=== PATIENT | female | born 1995 | race Caucasian/White ===

== ENCOUNTER → 2020-02-05 11:35 | Outpatient (CLI) | payer SELFPAY ==
[2020-02-06 07:35] LABS: SARS-COV-2 TOTAL ABS Nonreactive (Nonreactive)
== END ==
PROVIDERS: PCP Family Medicine; Referring Provider Family Medicine; Visit Provider Family Medicine
DX: Z11.59 Encounter for screening for other viral diseases (principal)
CPT/HCPCS: 36415; 86769; G2023

== ENCOUNTER 2020-02-06 21:13 | Emergency (ER) | payer SELFPAY ==
[2020-02-06 21:15] VITALS: BP 112/79; PULSE 100; RESP 15; TEMP 37.2; O2SAT 99; BMI 21.9
[2020-02-06] MEDS: HYDROcodone Bitartrate/Apap 5/325 Tablet PO (21:39)
--- NOTE | 2020-02-06 21:44 | RAD_ITS ---
STUDY: X-RAY - RIGHT FOOT CLINICAL: Female, 24 years old. Pain on plantar surface TECHNIQUE: 3 view(s) of the foot. COMPARISON: None. FINDINGS: There is no evidence of fracture or dislocation. There are no significant degenerative changes. There are no radiodense foreign bodies. RAD/Foot min 3 Views IMPRESSION: Negative radiographs of the right foot. Electronically Signed: Santosh Pizarro, at 21:56 EDT Tel , Service support ,
--- NOTE | 2020-02-06 22:13 | ED.VIS.GEN ---
History of Present Illness Chief Complaint: Lower Extremity Injury Informant: Patient Onset: Yesterday Context: Gradual Onset Timing: Intermittent Current Severity: Moderate Maximum Severity: Moderate Narrative: The patient is a 24-year-old female who is approximately 5 months gestation that presents to the emergency department with right foot pain. The patient states that today, she had tightness on the plantar aspect of her foot. She states throughout the day, got worse and felt like she was having cramping in her toes. She denies any swelling of her feet. She denies any shortness of breath. She has no history of pulmonary embolus. She did have a splinter in the foot yesterday, but it was superficial and able to be removed. Prior similar symptoms: No Recent Illness/Hospitalization: No Past Medical History - Allergies and Home Meds Allergies/Adverse Reactions: Allergies No Known Allergies Allergy (Verified 02/06/20 21:14) Primary Care Physician: Daniel Ordonez DO [Primary Care Provider] - Prior records reviewed: Yes Past Medical History: None Surgical History: no surgical history Smoking Status: Never smoker Review of Systems General: Denies: Chills, Fever, Sweats Eyes: Denies: Visual changes - bilaterally, Diplopia ENT: Denies: Rhinorrhea, Sore throat Cardiovascular: Denies: Chest pain, Palpitations Respiratory: Denies: Dyspnea, Cough, Dyspnea on exertion Gastrointestinal: Denies: Abdominal pain, Nausea, Vomiting, Diarrhea, Melena, Hematochezia Genitourinary: Denies: Dysuria, Hematuria, Frequency Musculoskeletal: Denies: Back pain, Extremity Pain Skin: Denies: Rash, Wounds Neurological: Denies: Headache, Weakness, Numbness Physical Exam Vital Signs/Narrative: Vital Signs Temp Pulse Resp BP Pulse Ox 02/06/20 21:15 99.0 F 100 15 112/79 99 General: Well nourished, Well developed, No Acute Distress Head: Normocephalic, Atraumatic Eyes: Perrl, EOMI ENT: Moist mucous membranes, No rhinorrhea Neck: Supple, Nontender Cardiovascular: Regular rate, Regular rhythm, No murmurs Respiratory: No distress, CTA bilaterally, Chest nontender Abdomen: Soft, Nontender, Nondistended, Normal bowel sounds Back: Nontender, Normal Inspection Extremities: No edema, Tenderness - Patient is tender over the plantar fascia of the right foot. She has normal pulses. There is no palpable cords. She has no calf tenderness. With palpation of the fascia, she does get pain into the toes. Skin: Normal color, No rash Neurological: Alert, Oriented x3, Cranial nerves II-XII grossly intact, Normal Strength, Normal Sensation Psychological: Normal affect, Normal Mood Diagnostic/Tx/Re-eval Clinical Impression(s) from Imaging Studies Foot X-Ray 02/06/20 21:44 IMPRESSION: Negative radiographs of the right foot. Electronically Signed: Santosh Pizarro, at 21:56 EDT Tel , Service support , - Medical Decision Making The patient symptoms do seem most consistent with plantar fasciitis. She has no palpable cords, pain along the venous return system, or edema. The pain is all in the sole of the foot. I did obtain plain films which are unremarkable. The patient was given 1 [place] and had market improvement of her pain. She is able to stretch the foot without pain. At this point, I do feel that she is safe for outpatient follow-up. She is comfortable with this plan of care and will be discharged home. Impression 1. Plantar fasciitis right foot ED Disposition - Plan for ED Patient: Instructions: ED Plantar Fasciitis Referrals: Daniel Ordonez DO [Primary Care Provider] -
== END 2020-02-06 22:29 | disposition home or self-care (01) ==
LOC: ED 21:55
PROVIDERS: Emergency Provider Emergency Medicine; PCP Family Medicine
DX: M72.2 Plantar fascial fibromatosis (principal); O26.90 Pregnancy related conditions, unspecified, unspecified trimester; Z3A.00 Weeks of gestation of pregnancy not specified
CPT/HCPCS: 73630; 99283

== ENCOUNTER → 2020-06-07 16:30 | Outpatient (CLI) | payer SELFPAY | PROVIDERS: PCP Family Medicine; Referring Provider Obstetrics & Gynecology; Visit Provider Obstetrics & Gynecology | DX: Z11.59 Encounter for screening for other viral diseases (principal) | CPT/HCPCS: 87635; C9803; U0003 ==

== ENCOUNTER 2020-06-11 09:40 | Inpatient (IN) | payer SELFPAY ==
[2020-06-11] VITALS (16 sets, daily range): BP systolic 92–121; BP diastolic 51–72; PULSE 72–114; RESP 14–18; TEMP 36.4–37.4; O2SAT 96–100; BMI 25.0
[2020-06-11] MEDS: Lactated Ringers 1,000 ML 999 ML IV (10:15)
[2020-06-11 10:41] LABS: Absolute Lymphocyte Count 1.75 X10^3/uL (0.83-4.51); Absolute Neutrophil Count 4.4 X10^3/uL (2.0-7.7); Basophil# 0.03 X10^3/uL; Basophil% 0.4 % (0-1); Eosinophil# 0.03 X10^3/uL; Eosinophils% 0.4 % (0-5); Hematocrit 36.5 % (37-47); Hemoglobin 12.8 g/dL (12.0-15.0); Lymphocyte # 1.75 X10^3/ul (4.0); Lymphocyte % 26.1 % (19-41); Mean Corp Hgb Conc 35.1 g/dL (32-36); Mean Corpuscular Hgb 32.7 pg (27.0-32.0); Mean Corpuscular Volume 93.4 fL (81-99); Mean Platelet Vol. 9.2 fl (6.2-12.0); Monocyte# 0.47 X10^3/uL; NRBC Flagged by Analyzer 0 % (0-5); Neutrophil # 4.38 X10^3/uL (2.7-7.7); Neutrophil % 65.5 % (47-70); Platelet Count 224 K/mm3 (150-450); Red Blood Count 3.91 M/mm3 (4.2-5.4); White Blood Count 6.7 K/mm3 (4.4-11.0)
[2020-06-11] MEDS: Acetaminophen 500 MG Tablet 1000 MG PO ×2 (11:14→17:47)
[2020-06-11] MEDS: Lactated Ringers 1,000 ML 150 ML IV (11:14)
[2020-06-11] MEDS: Sodium Citrate/Citric Acid 30 ML UDC PO (11:50)
--- NOTE | 2020-06-11 11:52 | PCM.HP.OB ---
History Date of Admission: 06/15/20 History of this : This is a 24 year-old, G [], P [], at 39 weeks gestational age. Medical History: Medical History (Last Updated 06/11/20 @ 11:[address] 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 Jennifer Mi MD) Previous section Z98.891 Allergies No Known Allergies Allergy (Verified 06/11/20 10:08) Home Medications: Home Medications Pnv No.95/Ferrous Fum/Folic AC [ Formula] 1 ea PO DAILY 02/06/20 Smoking Status: Never smoker Alcohol: None Number of Fetus(es): 1 History Past Pregnancies: Past Pregnancies Delivery Date Name GA/ Weeks Outcome Route Wt Sex Labor Length Anesthesia Delivery Location Provider FOB Labs: See [facility] prenatals Physical Exam Vitals: Vital Signs Temp Pulse Resp BP Pulse Ox 98.1 F 102 H 15 119/72 96 06/11/20 10:43 06/11/20 10:43 06/11/20 10:43 06/11/20 10:43 06/11/20 10:43 General: Alert, Oriented x3 Cardiovascular: Regular rate, Regular Rhythm Lungs: Clear to auscultation, Normal air movement Abdomen: Soft, Non Tender, Non-Distended, Gravid Neurological: Cranial nerves II-XII grossly intact [employer] CHIEF: Normal external genitalia Estimated gestational size: Appropriate for gestational size Presentation: Breech Assessment/Plan This is a 24 year-old, G3, P1011, at 39&3 weeks gestational age. Admit to L&D MOD - repeat for breech Informed consent signed after discussing R/B/A
[2020-06-11] MEDS: Cefazolin 2 GM in 0.9% Normal Saline 100 ML IV (12:06)
--- NOTE | 2020-06-11 13:06 | PCM.OPRPT ---
Report of Operation Surgery/Procedure Performed:: Repeat low transverse section Description of Surgical Findings:: Septate uterus normal adnexa Delivery Classification: Scheduled Final CAROLANN: 06/15/20 Gestational age: 39 Weeks and 3 Days wardsperson: Laura Christopher Type of Anesthesia:: Spinal Date of Procedure: 06/11/20 Pre-Operative Diagnosis: (1) Breech presentation (2) Septate uterus (3) Prior section Post-Operative Diagnosis: Same Indications: Start time - 12:15 Stop time - 13:13 Indications for : Repeat Elective , Breech Description of Procedure: Patient taken to OR where spinal anesthesia was placed. She was prepped and draped in the normal sterile fashion in a dorsal supine position with a leftward tilt. After ensuring adequacy of anesthesia the Pfannensteil skin incision was made and carried through to the underlying fascia with a scalpel. The fascia was incised in the midline and carried laterally with the Alex scissors. The rectus muscles were in the midline. The peritoneum was entered bluntly. The uterus was incised in a transverse fashion and then incision extended with cephalocaudad traction. The fetus was breech and buttocks grasped. was delivered gently via typical breech maneuvers. 3VC clamped & cut in slightly delayed fashion. Then the infant was handed off to the waiting RN. The placenta was delivered with gentle traction and fundal massage and the uterus was exteriorized and cleared of all clots and debris. The uterine incision was closed with 1 vicryl suture in a running locked fashion. The bovie was used to further obtain further hemostasis of the uterine incision. A second imbricating layer of monocryl was placed over the uterine incision. The pelvis was irrigated & then cleared of all clots and debris. The uterine incision was reexamined and found to be hemostatic. Some kayla was placed over the uterine incision due to the denuded areas. The fascia was closed with looped PDS suture in a running standard fashion. Kayla was also placed on the rectus muscle. The subcutaneous tissue was examined & any bleeding bovie cauterized. The subcutaneous tissue was reapproximated with plain gut suture. The skin was closed in a subcuticular fashion by the C[employer] REGISTER MECHANIC with me present in the labor and delivery suite. I performed the remainder of the procedure w/ assistance. Amniotic Membrane Rupture Type: Artificial Amniotic Fluid Description: Clear Placenta Disposition: [facility] Drain: Jaime to straight drain Fluids Replaced: 1,000ml Cord Entanglement: None Cord Vessel Description: 3 Vessels Esitmated Blood Loss (ml): 700ml Infant Gender: Female (1 minute): 8 (5 minute): 9 Antibiotic Given: Ancef 2 grams IV x1 Complications: None - Admit VTE Documentation VTE Present on Admission: No
[2020-06-11] MEDS: Oxytocin 30 units/NS 500 ml 30 UNITS/500 ML IV.SOLN 167 UNITS IV (13:27)
[2020-06-11] MEDS: Lactated Ringers 1,000 ML 100 ML IV (16:47)
[2020-06-11] MEDS: Ketorolac 30 MG/ML Syringe IV (17:46)
[2020-06-12] VITALS (12 sets, daily range): BP systolic 91–106; BP diastolic 54–62; PULSE 72–86; RESP 16–18; TEMP 36.4–36.9; O2SAT 97–99
[2020-06-12] MEDS: Ketorolac 30 MG/ML Syringe IV ×3 (00:22→12:56)
[2020-06-12] MEDS: Acetaminophen 500 MG Tablet 1000 MG PO ×3 (00:22→12:56)
[2020-06-12 05:57] LABS: Hematocrit 30.9 % (37-47); Hemoglobin 10.7 g/dL (12.0-15.0); Mean Corp Hgb Conc 34.6 g/dL (32-36); Mean Corpuscular Hgb 33.3 pg (27.0-32.0); Mean Corpuscular Volume 96.3 fL (81-99); Mean Platelet Vol. 9.4 fl (6.2-12.0); Platelet Count 162 K/mm3 (150-450); RBC Distribution Width CV 12.9 % (11.6-14.6); RBC Distribution Width SD 45.1 fl (35.1-43.9); Red Blood Count 3.21 M/mm3 (4.2-5.4); White Blood Count 8.7 K/mm3 (4.4-11.0)
--- NOTE | 2020-06-12 08:21 | PCM.PN.OB ---
Subjective: Patient is doing well. She is ambulating and voiding without difficulty. Tolerating regular diet without nausea or vomiting. Lochia normal. She denies lightheadedness, dizziness, chest pain, shortness of breath, leg pain. She has no complaints this morning would like to go home today. - Physical Exam Vitals/I&O's: Vital Signs Temp Pulse Resp BP Pulse Ox 98.4 F 79 18 100/61 98 06/12/20 03:19 06/12/20 06:19 06/12/20 06:19 06/12/20 03:19 06/12/20 06:19 Oxygen Delivery Method Room Air Weight: 160 lb Body Mass Index (BMI) 25.0 Intake and Output for Last 24 Hours 06/10/20 06/11/20 06/12/20 23:59 23:59 23:59 Intake Total 4079.17 / 4079.17 Output Total 2100 / 2099 1700 / 1700 Balance 1979.17 / 1978.17 -1700 / -1700 General: Alert, No apparent distress HEENT: Atraumatic Abdomen: Soft, Non Tender, Non-Distended, - - Dressing c/d/i Extremities: No edema, No Calf Tenderness Skin: No rashes Neurological: Neuro grossly intact Psych/Mental Status: Normal Affect, Appropriate Laboratory Results 06/11/20 10:15: WBC 6.7, RBC 3.91 L, Hgb 12.8, Hct 36.5 L, MCV 93.4, MCH 32.7 H, MCHC 35.1, RDW Std Deviation 44.0 H, RDW Coeff of Olga 13.0, Plt Count 224, MPV 9.2, Immature Gran % (Auto) 0.600, Neut % (Auto) 65.5, Lymph % (Auto) 26.1, [place] % (Auto) 7.0, Eos % (Auto) 0.4, Baso % (Auto) 0.4, Absolute Neuts (auto) 4.4, Absolute Lymphs (auto) 1.75, Nucleated RBC % 0 06/11/20 10:15: Blood Type A NEGATIVE, Antibody Screen NEGATIVE 06/11/20 15:25: Screen NEGATIVE, Baby's Blood Type O POSITIVE, Baby's MEL NEGATIVE 06/12/20 05:35: WBC 8.7, RBC 3.21 L, Hgb 10.7 L, Hct 30.9 L, MCV 96.3, MCH 33.3 H, MCHC 34.6, RDW Std Deviation 45.1 H, RDW Coeff of Olga 12.9, Plt Count 162, MPV 9.4 Current Medications Acetaminophen (Acetaminophen 500 Mg Tablet) 1,000 mg PO Q6 [facility] Last Admin: 06/12/20 06:36 Dose: 1,000 mg Documented by: Bisacodyl (Bisacodyl 10 Mg Suppository) 10 mg RECTAL UD PRN PRN Reason: If no BM Diphenhydramine HCl (Diphenhydramine 25 Mg Capsule) 25 mg PO Q6H PRN PRN PRN Reason: ITCHING Stop: 06/12/20 12:43 Hydrocortisone (Hydrocortisone 2.5% Crm) 1 applic TOPICAL TID PRN PRN; Protocol PRN Reason: Discomfort Ibuprofen (Ibuprofen 600 Mg Tablet) 600 mg PO Q6H [facility] Ketorolac Tromethamine (Ketorolac 30 Mg/Ml Syringe) 30 mg IV Q6H [facility] Stop: 06/12/20 12:31 Last Admin: 06/12/20 06:37 Dose: 30 mg Documented by: Methylergonovine Maleate (Methylergonovine 0.2 Mg/Ml Ampul) 0.2 mg IM X1 PRN PRN Reason: Uterine Atony Nalbuphine HCl (Nalbuphine 10 Mg/Ml Ampul) 5 mg IV Q3H PRN PRN PRN Reason: ITCHING Stop: 06/12/20 12:43 Naloxone HCl (Naloxone 0.4 Mg/Ml Syringe) 0.02 mg IV Q1M PRN PRN Reason: RR <10 and pt unresponsive Ondansetron HCl (Ondansetron 4 Mg/2 Ml Vial) 4 mg IV Q4H PRN PRN PRN Reason: Nausea Oxycodone HCl (Oxycodone 5 Mg Tablet) 5 - 10 mg PO Q4H PRN PRN PRN Reason: Pain Score 4-10 Prochlorperazine Edisylate (Prochlorperazine 10 Mg/2 Ml Vial) 10 mg IV Q6H PRN PRN PRN Reason: NAUSEA Senna/Docusate Sodium (Senna/Docusate Sodium 1 Tablet) 0 tablet PO DAILY [facility] Simethicone (Simethicone 80 Mg Tablet) 80 mg PO PCHS PRN PRN Reason: Indigestion/stomach pain Sodium Chloride (0.9% Saline Lock 10 Ml Syringe) 5 - 15 ml IV UD PRN PRN Reason: SALINE FLUSH Medical Necessity - Tobacco Use Smoking Status: Never smoker Assessment/Plan Pt is postop day 1 from a repeat section. She is doing well. CBC reviewed. Hemodynamically stable. Her pain is well controlled without opiate pain medication. She is meeting all milestones to go home. She requests to go home today. Discharge instructions reviewed.
--- NOTE | 2020-06-12 08:24 | DCINST_ITS ---
Discharge Diet: No Restrictions Discharge Activity: May Not Drive, May Shower May resume sexual activity in: 6 weeks Ice area for (Minutes): 15 Weight Bearing Status: Weight bearing as tolerated Lifting Restrictions: Nothing heavier than baby for 4 weeks Call your doctor if your incision/area has: Sudden Increased Bleeding, Increased Pain/ Swelling, Increased Redness, Foul Smelling Discharge, Swelling at the incision site Call your doctor if you observe: Fever of 101 or Higher, Inability to urinate, Inability to have a bowel movement, Using more than one pad per hour, Shortness of breath, Dizziness, Fainting spells, Swelling in the ankles, Chest pain, Increased palpitations (irregular heartbeat), Calf discomfort, Uncontrolled pain Suture Line Care: Avoid Pulling/Pushing, Avoid Pinching/Bending Remove Dressing in (days):: 2 Cleanse incision/area with: Soap & Water Additional Instructions: If you experience any of the following, contact your healthcare provider. * Bleeding that soaks a pad every hour for 2 hours * Fever 100.4 or higher * Unrelieved incision or abdominal pain * Swelling, redness, discharge or bleeding from your incision or episiotomy site * Your incision begins to separate * Problems urinating (including inability to urinate or burning while urinating). * Visual changes * Severe headache * Flu-like symptoms * Pain or redness in one of both of your breasts * Pain, warmth, tenderness or swelling in your legs, especially the calf area * Frequent nausea and vomiting * Symptoms of depression or anxiety If you experience any of the following, call 911 or go to the nearest Emergency Room. * Chest pain * Problems breathing * Seizure activity * Partial or complete paralysis of a body part, slurred speech, weakness or drooping of the face, or a sudden inability to walk or hold your balance Allergies/Adverse Reactions: Allergies No Known Allergies Allergy (Verified 06/11/20 10:08) Medications to take at Discharge Pnv No.95/Ferrous Fum/Folic AC [ Formula] 1 ea PO DAILY 02/06/20 Docusate Sodium [Colace] 100 mg PO BID PRN PRN #30 cap 06/12/20 Ibuprofen [Motrin] 600 mg PO Q6H PRN PRN #30 tab 06/12/20 The following prescriptions were given: Docusate Sodium [Colace] 100 mg PO BID PRN PRN #30 cap PRN Reason: Constipation Transmission Status: Pending to [facility] Ibuprofen [Motrin] 600 mg PO Q6H PRN PRN #30 tab PRN Reason: Pain Score 6-10 Transmission Status: Pending to [facility] Follow-Up: Call to make an appointment with your doctor for an incision check in 1-2 weeks. You will also need a 6 week post- follow up appointment. Test results from this visit will be discussed in further detail at your follow- up appointment, if applicable. Please Follow Up With: Jennifer Mi MD When: 1-2 weeks for incision check. 6 weeks for visit Primary Care Physician: Daniel Ordonez DO [Primary Care Provider] -
[2020-06-12] MEDS: Senna/Docusate Sodium 1 Tablet PO (12:56)
[2020-06-12] MEDS: 0.9% Saline Lock 10 ML Syringe IV (12:57)
== END 2020-06-12 17:15 | disposition home or self-care (01) | DRG 788 ==
PROVIDERS: Admitting Provider Obstetrics & Gynecology; PCP Family Medicine; Visit Provider Obstetrics & Gynecology
PROC: 10D00Z1 Extraction of Products of Conception, Low, Open Approach (ICD-10-PCS; CPT 59514; principal; 2020-06-11 11:45)
DX: O34.211 Maternal care for low transverse scar from previous cesarean delivery (principal); Z37.0 Single live birth; Q51.28 Other and unspecified doubling of uterus; O32.1XX0 Maternal care for breech presentation, not applicable or unspecified; Z3A.39 39 weeks gestation of pregnancy
CPT/HCPCS: 85025; 85027; 85461; 86850; 86900; 86901; 90384; 99218; J7120; A4216; G0378; J2405; J2790

== ENCOUNTER 2021-01-08 06:15 | Emergency (ER) | payer OTHER, SELFPAY ==
[2020-06-11 10:06] VITALS: BMI 25.0
[2021-01-08 06:16] VITALS: BP 122/75; PULSE 118; RESP 16; TEMP 36.8; O2SAT 98; BMI 21.8
--- NOTE | 2021-01-08 06:29 | US_ITS ---
STUDY: FIRST TRIMESTER OBSTETRICAL ULTRASOUND REASON FOR EXAM: Female, 25 years old bleeding LMP: 10/24/2020. TECHNIQUE: Transvaginal TECHNICAL QUALITY: Adequate. PRIOR ULTRASOUND: None. FINDINGS: There is no demonstrated intrauterine gestational sac. There is no demonstrated yolk sac. The placenta is non-visualized. There is no demonstrated embryo ( pole). The estimated gestation age (EGA) by LMP is 10 weeks, 6 days. The estimated date of delivery (CAROLANN) by LMP is 07/31/2021. The uterus measures 12.9 cm x 9.1 cm x 5.2 cm. The endometrium is thickened measuring 1.9 cm. There is evidence of a uterine septum.. There is no demonstrated uterine fibroid. The cervix is closed. The right ovary measures 4.6 cm x 4 cm x 1.7 cm. There is no right ovarian cyst. There is no visualized right adnexal mass or complex lesion. The left ovary measures 4.5 cm x 4.2 cm x 1.4 cm.. There is no left ovarian cyst. There is no visualized left adnexal mass or complex lesion. There is minimal fluid in the cul de sac. US/Transvaginal w/Preg US IMPRESSION: No evidence of intrauterine gestation. Thickened endometrium. Septated uterus. Electronically Signed: Michael Rendon MD at 8:24 EDT , Service support ,
--- NOTE | 2021-01-08 06:34 | EX.ED.DYSGE1 ---
HPI History of Present Illness Chief Complaint: Vag Bld, Preg Informant: patient Narrative Narrative: 25 year old female presenting with vaginal bleeding in . Patient states she believed she was approximately 9 weeks and on Wednesday began having heavy bleeding with clots. She states before that she had been spotting for weeks. She states the bleeding slowed down over the weekend and became heavy again on Wednesday. She has mild cramping. She is [id number]. She has not had an ultrasound during this . She has lightheadedness without syncope. Prior similar symptoms: Yes Recent Illness/Hospitalization: No PFSH PFSH Medical History Septate uterus Home Medications docusate sodium 100 mg PO BID PRN PRN #30 cap 06/12/20 [Rx Last Taken Unknown] ibuprofen 600 mg PO Q6H PRN PRN #30 tab 06/12/20 [Rx Last Taken Unknown] Allergy/AdvReac Type Severity Reaction Status Date / Time No Known Allergies Allergy Verified 01/08/21 06:19 Surgical History Previous section Social History Smoking Status: Never smoker ROS ROS ED Constitutional Constitutional ED: Denies fever(s) Eyes Eyes: Denies change in vision ENT ENT ED: Denies rhinorrhea or sore throat Cardiovascular Cardiovascular: Denies chest pain or palpitations Respiratory/Chest Respiratory/Chest: Denies cough or dyspnea Gastrointestinal Gastrointestinal: Denies abdominal pain, diarrhea, nausea or vomiting Genitourinary Genitourinary ED: Denies dysuria Musculoskeletal Musculoskeletal: Denies myalgias Integumentary Denies rash Neurologic Neurologic: Denies headache(s) Psychiatric Psychiatric: Denies suicidal thoughts EXAM Physical Exam Const Vital Signs: 01/08/21 06:16 Temperature 98.2 F Temperature Source Temporal Pulse Rate 118 H Respiratory Rate 16 Blood Pressure 122/75 H Blood Pressure Mean 90 Pulse Ox 98 Oxygen Delivery Method Room Air Positive well nourished and well developed General Appearance ED: well developed HEENT Reports normocephalic and head/scalp atraumatic Eyes PERRL and EOMs intact bilaterally Neck supple General: Negative for tenderness Chest Wall inspection of chest normal Resp normal respiratory effort and clear to auscultation bilaterally Cardio regular rate and regular rhythm GI non-tender and non-distended Palpation: soft; Negative for guarding or rebound tenderness present no CVA tenderness Narrative: large clot cleared with cotton tip swab. No active bleeding once blood is cleared. Extremity normal to inspection Neuro oriented x3 Sensorium / Orientation: alert Psych mental status grossly normal MDM MDM MDM Narrative Medical decision making narrative: Ultrasound is pending and will be checked out to the oncoming physician Lab Data Attestation: I reviewed the patient's lab results. Labs: Laboratory Results - last 24 hr 01/08/21 01/08/21 06:40 06:40 Hgb 11.9 L Hct 34.0 L HCG, Quant 96656 H Discharge Plan Triage Chief Complaint: Vag Bld, Preg ED Provider: Leela Hou Dx/Rx/DC Orders Instructions: ED Possible Miscarriage ... Prescriptions: No Action docusate sodium 100 MG capsule 100 mg PO BID PRN PRN (Reason: Constipation) Qty: 30 RF: 0 ibuprofen 600 MG tablet 600 mg PO Q6H PRN PRN (Reason: Pain Score 6-10) Qty: 30 RF: 0 Primary Care Provider: Daniel Ordonez Referrals: Daniel Ordonez DO [Primary Care Provider] -
[2021-01-08 06:48] LABS: Hemoglobin 11.9 g/dL (12.0-15.0)
[2021-01-08 07:27] LABS: hCG Titer Quant., Serum 29282 mIU/mL (1-3)
[2021-01-08 09:27] VITALS: BP 99/59; PULSE 63; RESP 16; O2SAT 99
== END 2021-01-08 09:28 | disposition home or self-care (01) ==
PROVIDERS: Emergency Provider Emergency Medicine; PCP Family Medicine
DX: O20.9 Hemorrhage in early pregnancy, unspecified (principal); Z3A.09 9 weeks gestation of pregnancy
CPT/HCPCS: 76817; 84702; 85014; 85018; 86850; 86900; 86901; 90384; 96372; 99283; A4216; J2790

== ENCOUNTER 2021-06-17 18:45 | Inpatient (IN) | payer SELFPAY, OTHER ==
--- NOTE | 2021-06-17 | IMM_PTH ---
PATIENT: ROGERIO ARAMBULA LOC: WP U#:[id number] AGE/SX: 25/F ROOM: WP021 RE06/17/[address]: Екатерина Turner CNM : 1995 BED: 1 DIS: 06/18/2021 SPEC #: [id number] RECD: 06/19/21 15:07 STATUS: SAUL REQ #: [id number] [place]: 06/17/21 00:[address]: Екатерина Turner DEPT: IMMUNOHISTOCHEMISTRY RECD BY: Sussy Perez ENTERED: 06/19/21 15:07 SP TYPE: IMMUNO OTHR DR: Dr. Daniel Ordonez DO Tissues: Placenta, NOS Procedures: MPO (initial) MPO (add) PHYSICIAN & INSTITUTION [place] [id number] SPECIMEN INFORMATION: Tissue Source: Placenta Clinical Info: demise Specimen Number: [id number] #2 & 5 CPT code: 57366, 10606 METHODOLOGY: Deparaffinized sections of prefer/formalin-fixed tissue or PAP/DQ stained slides are incubated with monoclonal/polyclonal antibodies/oligonucleotide probes. Localization is made via biotin free immunoperoxidase method. Appropriate controls are performed and reacted as expected. Results on target cell population are indicated in the following table: RESULTS: ANTIBODY / CLONE RESULT Block 2 MPO (polyclonal) positive Block 5 MPO (polyclonal) positive These tests were developed and their performance characteristics determined by [facility]. They may not have been cleared or approved by the U.S. Food and Drug Administration. The FDA has determined that such clearance or approval is not necessary. The above immunohistochemical/dualISH markers are ordered and reviewed by the Pathologist. INTERPRETATION: Placenta: Umbilical cord with changes suggestive of focal acute inflammation. Decidua with focal acute inflammation. AM:mikhail 06/20/2021
--- NOTE | 2021-06-17 | PLAC_PTH ---
PATIENT: ROGERIO ARAMBULA LOC: WP U#:[id number] AGE/SX: 25/F ROOM: WP021 RE06/17/[address]: Екатерина Turner CNM : 1995 BED: 1 DIS: 06/18/2021 SPEC #: [id number] RECD: 06/18/21 07:29 STATUS: SAUL REManuela #: [id number] [place]: 06/17/21 00:[address]: Екатерина Turner DEPT: SURGICAL PATHOLOGY RECD BY: Irwin Butcher ENTERED: 06/18/21 09:42 SP TYPE: PLACENTA OTHR DR: Dr. Daniel Ordonez DO Tissues: Placenta, NOS Procedures: Surgery Specimen Level V HEADER OPERATION: Vaginal delivery PRE-OP DIAGNOSIS: demise TISSUE SUBMITTED: Placenta MICROSCOPIC DIAGNOSIS Immature placenta (84 gm): Umbilical cord ? trivascular with changes suggestive of acute funisitis. See comment. Placental membranes ? focal autolytic change. Placental disc ? immature villi consistent with gestational age. Mild acute and chronic deciduitis. AM:mikhail 06/19/2021 COMMENT Immunohistochemistry ([id number]) supports the above diagnosis. Increased intraparenchymal fibrin plaques. Case has been reviewed in consultation with Dr. Charlton who concurs with the above diagnosis. IDC:[id number] MICROSCOPIC DESCRIPTION Slides are reviewed. GROSS DESCRIPTION SPECIMEN: PLACENTA / CLINICAL INFORMATION: A. Weight: Not noted B. Gestational Age: 19 weeks C. Sex: Male PLACENTAL WEIGHT (POST FIXATION): 84 gm PLACENTAL DIMENSIONS: 8 x 6 x 2 cm PLACENTAL SHAPE: Usual ovoid PLACENTAL WEIGHT FOR GESTATIONAL AGE: Under 10th percentile MEMBRANES - Present A. Insertion: Marginal B. Site of rupture from edge: At edge of placental disc C. Color of membrane: Harley-greenish and mucoidy consistent with meconium staining D. Abnormalities: None UMBILICAL CORD - Present A. Color: Harley-farley B. Insertion: Marginal C. Length: 16 cm D. Diameter: 0.5 cm E. Number of vessels: Three F. Abnormalities: None PLACENTAL DISC ? The body of the placenta is partly disrupted. A. Color of surface: Harley-farley B. surface abnormalities: None C. Maternal cotyledons: Intact with minimal tears D. Attached retro placental clot: A few blood clots are noted at the edge of the placenta. E. Cut surface: Dark red and spongy F. Lesions: None G. Separate clot: Absent SECTIONS SUBMITTED: 1. Membrane roll 2. Cord, maternal end 3. Cord, end 4. Placental disc, and maternal surfaces 5. Placental disc, and maternal surfaces 6. Placental disc, and maternal surfaces SJ:mikhail 06/18/21 TC:3 CPT: 43870
[2021-06-17 19:18] VITALS: BMI 21.4
[2021-06-17 19:59] VITALS: BP 103/67; PULSE 86; TEMP 37.3; TEMP 38
[2021-06-17] MEDS: miSOPROStol 200 MCG Tablet 400 MCG VAGINAL (20:29)
[2021-06-17 20:49] LABS: Absolute Lymphocyte Count 2.21 X10^3/uL (0.83-4.51); Absolute Neutrophil Count 3.6 X10^3/uL (2.0-7.7); Basophil# 0.03 X10^3/uL; Basophil% 0.5 % (0-1); Eosinophil# 0.05 X10^3/uL; Eosinophils% 0.8 % (0-5); Hematocrit 40.5 % (37-47); Hemoglobin 13.8 g/dL (12.0-15.0); Lymphocyte # 2.21 X10^3/ul (0.83-4.51); Lymphocyte % 34.3 % (19-41); Mean Corp Hgb Conc 34.1 g/dL (32-36); Mean Corpuscular Hgb 30.7 pg (27.0-32.0); Mean Corpuscular Volume 90.2 fL (81-99); Mean Platelet Vol. 9.5 fl (6.2-12.0); Monocyte# 0.53 X10^3/uL; Monocyte% 8.2 % (0-10); NRBC Flagged by Analyzer 0 % (0-5); Neutrophil # 3.59 X10^3/uL (2.7-7.7); Neutrophil % 55.7 % (47-70); Platelet Count 280 K/mm3 (150-450); RBC Distribution Width CV 13.1 % (11.6-14.6); RBC Distribution Width SD 42.7 fl (35.1-43.9); Red Blood Count 4.49 M/mm3 (4.2-5.4); White Blood Count 6.4 K/mm3 (4.4-11.0)
--- NOTE | 2021-06-17 21:11 | HP.PCM.OB_ITS ---
HPI - General General Date of Admission: 06/17/21 HPI Narrative ROGERIO ARAMBULA, is a 25 F at 19.5 weeks gestation that presents for induction of labor for intrauterine demise. Patient in office today for ultrasound and no cardiac activity seen. demise confirmed. Fetus measuring 16.1 weeks gestation. complicated by late care, RH negative status, and septated uterus. Patient has 2 previous C/S and desires TOLAC today. Maternal Data Information CAROLANN Calculator Estimated Delivery Date Method Current WG Current Estimate 11/06/21 Manual 19w 5d PFSH PFS Medical History Septate uterus Home Medications multivitamin with minerals 10 ml PO DAILY 06/17/21 [History Last Taken 06/16/21] Allergy/AdvReac Type Severity Reaction Status Date / Time No Known Allergies Allergy Verified 06/17/21 20:20 Surgical History Previous section Social History Smoking Status: Never smoker History Elective abortions Hx Para 2 Spontaneous abortions Hx # Term Pregnancies Ectopic pregnancies Hx # Pregnancies Multiple births # of living children ROS Eyes Eyes: Denies blurry vision, change in vision or spots in vision ENT HEENT: Denies dizziness or headache(s) Cardiovascular Cardiovascular: Denies abdominal pain, chest pain or dyspnea Respiratory/Chest Respiratory/Chest: Denies cough, dyspnea, shortness of breath at rest or shortness of breath with exertion Gastrointestinal Gastrointestinal: Denies abdominal pain, diarrhea or vomiting Genitourinary Genitourinary: Denies change in urinary stream, difficulty urinating or dysuria Musculoskeletal Musculoskeletal: Reports none Integumentary Integumentary: Denies rash Neurologic Neurologic: Denies dizziness, headache(s), memory loss or weakness Psychiatric Psychiatric: Reports none Vital Signs Vital Signs Vital Signs: 06/17/21 19:59 Temperature 99.2 F H Temperature Source Oral Pulse Rate 86 Blood Pressure 103/67 BP Systolic 103 BP Diastolic 67 Weight Weight: 137 lb Body Mass Index (BMI) 21.4 Physical Exam Const alert, oriented x3 and no apparent distress General Appearance: cooperative Orientation / Consciousness: awake Exam Limitations: no limitations HEENT normocephalic Head and Scalp: normal to inspection Eyes General Eye: normal appearance of both eyes Neck full ROM and no lymphadenopathy Lymph Lymphatic: no lymphadenopathy noted Chest inspection of chest normal Resp normal respiratory effort, normal air movement and clear to auscultation bilaterally Effort and Inspection: able to speak in complete sentences and symmetric chest movement Cardio regular rate and regular rhythm GI normal to inspection, nondistended, normoactive bowel sounds Manual OB Exam: dilated closed, effaced thick and station -3 Amniotic Fluid: no amniotic fluid noted Back/Spine normal ROM Extremity full ROM and no calf tenderness Skin no rashes or lesions noted General Skin Exam: no breakdown Neuro oriented x3 and CN's II-XII intact bilaterally Psych mental status grossly normal and thought process normal Labs Labs Labs: Blood Type A NEGATIVE Antibody Screen NEGATIVE Hct 40.5 % (37-47) Hgb 13.8 g/dL (12.0-15.0) Obstetrics US Rhogam given: Yes Assessment & Plan (1) IUFD at less than 20 weeks of gestation: (2) Previous delivery affecting , antepartum: (3) Septate uterus: (4) Rh negative status during : QUALIFIERS: Trimester: second trimester Qualified Code(s): O26.89 2 - Other specified related conditions, second trimester; Z67.91 - Unspecified blood type, Rh negative PLAN: Admit to labor and delivery for induction of labor for IUFD Routine labs Start IV fluids and run per policy Cytotec 400 mcg PV every 4 hours Epidural for pain control Anticipate - Rhogam IM after delivery Dr. Mi collaborating physician and involved in plan of care
[2021-06-18] VITALS (18 sets, daily range): BP systolic 100–116; BP diastolic 56–71; PULSE 73–100; RESP 16; TEMP 37.1–37.4; O2SAT 98–99
[2021-06-18] MEDS: miSOPROStol 200 MCG Tablet 400 MCG VAGINAL ×2 (00:43→04:52)
[2021-06-18] MEDS: Oxytocin 30 units/NS 500 ml 30 UNITS/500 ML IV.SOLN 334 UNITS IV (06:08)
--- NOTE | 2021-06-18 06:39 | EX.PCM.OBRPT ---
Assessment & Plan (1) (spontaneous vaginal delivery): (2) Intact amniotic membranes: Maternal Data Information CAROLANN Calculator Estimated Delivery Date Method Current WG Current Estimate 11/06/21 Manual 19w 6d Vaginal Delivery Maternal Presentation Maternal Presentation: at 19.5 weeks gestation for induction of labor for intrauterine demise Type of Induction: Cytotec Medical Reason for Induction: demise Operative Information Type of Anesthesia: None Estimated Blood Loss: 50 Time of Delivery: 06:03 Findings Description of Procedure: Called to patient's room due to feeling pressure. With initial push, fetus delivered en caul. Amniotic sac intact. Placenta intact. Vaginal sweep completed by me. Pitocin IV started. Bleeding minimal. Fundus firm [address] Mi notified of delivery. Patient declines Anora testing. Placenta sent to pathology. Placenta Disposition: Sent to Pathology
--- NOTE | 2021-06-18 07:06 | NURSING ---
of demise 06/18/2021 at 0603. Fetus delivered in intact amniotic sac.
--- NOTE | 2021-06-18 07:12 | PCM.DC ---
Discharge Instructions Follow Up Care Test Results: Test results from this visit will be discussed in further detail at your follow-up appointment, if applicable. Discharge Plan Admission Admit Date/Time: 06/17/21 18:45 Primary Reason for Your Visit: Ricardoilhueyy Attending Provider: Екатерина Turner Primary Care Provider: Daniel Ordonez Instructions Additional Instructions / Restrictions: Please come to office after 6 weeks for exam Discharge Orders/Prescriptions Prescriptions: No Action multivitamin with minerals Liquid 10 ml PO DAILY RF: 0 Referrals / Follow Up: Daniel Ordonez DO [Primary Care Provider] - Disposition Disposition (needs filled in before D/C Order can be placed): Home, Self Care
[2021-06-23 11:02] LABS: Pathology Specimen OB SEE PATHOLOGY REPORT
== END 2021-06-18 10:05 | disposition home or self-care (01) | DRG 807 ==
PROVIDERS: Admitting Provider Advanced Practice Midwife; PCP Family Medicine; Visit Provider Advanced Practice Midwife
DX: O36.4XX0 Maternal care for intrauterine death, not applicable or unspecified (principal); Z37.1 Single stillbirth; Z3A.19 19 weeks gestation of pregnancy; O34.219 Maternal care for unspecified type scar from previous cesarean delivery; N85.8 Other specified noninflammatory disorders of uterus; O34.02 Maternal care for unspecified congenital malformation of uterus, second trimester; Q51.28 Other and unspecified doubling of uterus; O26.892 Other specified pregnancy related conditions, second trimester; Z67.91 Unspecified blood type, Rh negative
CPT/HCPCS: 59050; 85025; 85461; 86850; 86900; 86901; 87426; 88307; 88341; 88342; 90384; 99218; G0378; J2790

== ENCOUNTER 2022-11-03 09:25 | Inpatient (IN) | payer SELFPAY, OTHER ==
[2022-11-03] VITALS (19 sets, daily range): BP systolic 99–129; BP diastolic 44–75; PULSE 76–113; RESP 16; TEMP 36.5–37.1; O2SAT 96–100; BMI 27.6
[2022-11-03 10:13] LABS: Absolute Lymphocyte Count 1.46 X10^3/uL (0.83-4.51); Absolute Neutrophil Count 4.3 X10^3/uL (2.0-7.7); Basophil# 0.03 X10^3/uL; Basophil% 0.5 % (0-1); Eosinophil# 0.05 X10^3/uL; Eosinophils% 0.8 % (0-5); Hematocrit 35.3 % (37-47); Hemoglobin 12.5 g/dL (12.0-15.0); Lymphocyte # 1.46 X10^3/ul (0.83-4.51); Lymphocyte % 23.2 % (19-41); Mean Corp Hgb Conc 35.4 g/dL (32-36); Mean Corpuscular Hgb 33.1 pg (27.0-32.0); Mean Corpuscular Volume 93.4 fL (81-99); Mean Platelet Vol. 9.4 fl (6.2-12.0); Monocyte% 6.4 % (0-10); NRBC Flagged by Analyzer 0 % (0-5); Neutrophil # 4.32 X10^3/uL (2.7-7.7); Neutrophil % 68.6 % (47-70); Platelet Count 225 K/mm3 (150-450); RBC Distribution Width CV 13.1 % (11.6-14.6); RBC Distribution Width SD 44.7 fl (35.1-43.9); Red Blood Count 3.78 M/mm3 (4.2-5.4); White Blood Count 6.3 K/mm3 (4.4-11.0)
[2022-11-03] MEDS: Acetaminophen 500 MG Tablet 1000 MG PO ×3 (10:34→22:36)
[2022-11-03] MEDS: Lactated Ringers 1,000 ML 999 ML IV (10:35)
[2022-11-03] MEDS: Lactated Ringers 1,000 ML 150 ML IV (10:51)
[2022-11-03 11:02] LABS: Syphilis Antibodies Non-reactive
[2022-11-03] MEDS: Cefazolin 2 GM in 0.9% Normal Saline 100 ML IV (11:45)
--- NOTE | 2022-11-03 11:53 | PCM.HP.OB ---
HPI - General General Date of Admission: 11/03/22 Date of Service: 11/03/22 HPI Narrative ROGERIO ARAMBULA, is a 27 F who presents for . Maternal Data Information CAROLANN Calculator Estimated Delivery Date Method Current WG Current Estimate 11/06/21 Manual 91w 5d Final CAROLANN: 11/10/22 Gestational age: 39 weeks PFSH PFSH Medical History Intact amniotic membranes IUFD at less than 20 weeks of gestation Septate uterus (spontaneous vaginal delivery) Uterine anomaly Home Medications multivitamin with minerals 10 ml PO DAILY 06/17/21 [History Last Taken 06/16/21] Allergy/AdvReac Type Severity Reaction Status Date / Time No Known Allergies Allergy Verified 11/03/22 09:44 Surgical History Previous delivery affecting , antepartum Previous section Social History Smoking Status: Never smoker History Elective abortions Hx Para 2 Spontaneous abortions Hx # Term Pregnancies Ectopic pregnancies Hx # Pregnancies Multiple births # of living children Vital Signs Vital Signs Vital Signs: 11/03/22 10:25 Temperature 98.4 F Temperature Source Temporal Pulse Rate 113 H Respiratory Rate 16 Blood Pressure 129/74 H Blood Pressure Mean 92 Blood Pressure Source Monitor Blood Pressure Position Semi-Fowlers Blood Pressure Location Left Arm Pulse Ox 96 Oxygen Delivery Method Room Air Weight Weight: 176 lb 5.917 oz Body Mass Index (BMI) 27.6 Physical Exam Const alert and oriented x3 Chest inspection of chest normal GI soft to palpation, non-tender and non-distended Inspection: gravid external exam normal Extremity normal to inspection Neuro moves all extremities Labs Labs Labs: Blood Type A NEGATIVE Antibody Screen NEGATIVE Hct 35.3 % (37-47) L Hgb 12.5 g/dL (12.0-15.0) Obstetrics US Syphilis Total Ab Non-reactive Rhogam given: Yes Assessment & Plan (1) Breech presentation: COMMENT: @ 39 weeks (2) Previous delivery affecting : PLAN: Plan Admit to L&D Repeat c-cection - informed consent signed after discussing R/B/A RH negative Routine PP care
--- NOTE | 2022-11-03 12:51 | EX.PCM.OBRPT ---
Maternal Data Information CAROLANN Calculator Estimated Delivery Date Method Current WG Current Estimate 11/06/21 Manual 91w 5d Final CAROLANN: 11/10/22 Gestational age: 39 weeks Details Operative Information Date of Procedure: 11/03/22 Pre-Operative Diagnosis: (1) Prior section (2) Breech presentation Post-Operative Diagnosis: Same Indications for : Repeat Elective and Breech Indications Narrative: The patient was taken to the operating room where spinal anesthesia was placed & found to be adequate. She was prepped and draped in the dorsal supine position with a leftward tilt. A Pfannenstiel skin incision was made approximately 2 cm above the symphysis pubis. Patient reported pain so procedure paused while IV pain medication given. Incision was then carried through to the underlying fascia with the scalpel. The fascia was incised incised in the midline and extended laterally with the Alex scissors. The rectus muscles were in the midline and the peritoneum was entered carefully and bluntly. The peritoneal incision was stretched and the bladder blade was inserted. Vesicouterine peritoneum was tented up, incised & then bladder flap created gently. The uterine incision was made in a low transverse fashion with the scalpel and extended superiorly and inferiorly with blunt dissection. The 's buttocks were grasped and infant delivered via typical breech maneuvers. The 3VC cord was clamped and cut. The infant was handed off to the waiting part time receptionist. The placenta was delivered with fundal massage and gentle traction in the standard fashion. The uterus was exteriorized and cleared of clots and debris. The uterine incision was closed with #1 Vicryl suture in a running locked fashion. Monocryl suture was used in an imbricating fashion. The incision was examined and was found to be hemostatic. The uterus was returned to the abdominal cavity. After irrigating Satya was placed over the uterine incision as some areas were denuded (but hemostatic). The peritoneum was closed with vicryl suture in running fashion The rectus muscle was examined and any bleeding was Bovie cauterized. The fascia was closed with PDS suture in a running standard fashion. The subcutaneous tissue was examining and any bleeding was Bovie cauterized. The subcutaneous tissue was reapproximated with interrupted sutures. The skin was closed in a subcuticular fashion by the WEATHER FORECASTER while I was present in the labor & delivery unit. The remainder of the procedure was performed by me with assistance. All sponge, lap, and needle counts were correct. The patient was taken to her room for recovery in a stable condition. Classification: Scheduled Procedure Type: low transverse hvac sales engineer #1: Jing Urrutia Type of Anesthesia: Spinal Antibiotic Given: Ancef 2 grams IV x1 Drain: Jaime to straight drain Estimated Blood Loss: 800ml Fluids Replaced: 2L Procedure Start Time: 12:05 Procedure Stop Time: 13:10 Findings Description of Procedure: Normal maternal uterus and adnexa Presentation: Positive for Jagdeep Breech Amniotic Membrane Rupture Type: Artificial Amniotic Fluid Description: Clear Placental Delivery Description: Expressed Placenta Disposition: [facility] Cord Vessel Description: 3 Vessels Cord Entanglement: None Infant A Gender: Male (1 minute): 2 (5 minute): 9 (10 at 10 minutes) Delayed Cord Clamping: No Complications Complications: None
[2022-11-03] MEDS: Ketorolac 30 MG/ML Syringe IV ×2 (13:37→20:04)
[2022-11-03] MEDS: Oxytocin 15 Units/NS 250ml 15 UNITS/250 ML IV.SOLN 83 UNITS IV (13:40)
[2022-11-03] MEDS: Lactated Ringers 1,000 ML 100 ML IV (16:40)
[2022-11-04] VITALS (8 sets, daily range): BP systolic 92–112; BP diastolic 47–65; PULSE 87–98; RESP 14–16; TEMP 36.7–36.9; O2SAT 97–98
[2022-11-04] MEDS: Enoxaparin 40 MG/0.4 ML Syringe SC (00:23)
[2022-11-04] MEDS: Ketorolac 30 MG/ML Syringe IV ×2 (01:45→07:49)
[2022-11-04] MEDS: 0.9% Saline Lock 10 ML Syringe IV ×2 (01:46→07:50)
[2022-11-04] MEDS: Acetaminophen 500 MG Tablet 1000 MG PO ×2 (04:14→10:11)
[2022-11-04 04:58] LABS: Hematocrit 31.4 % (37-47); Hemoglobin 10.7 g/dL (12.0-15.0); Mean Corp Hgb Conc 34.1 g/dL (32-36); Mean Corpuscular Hgb 32.7 pg (27.0-32.0); Mean Platelet Vol. 8.7 fl (6.2-12.0); Platelet Count 184 K/mm3 (150-450); RBC Distribution Width CV 13.1 % (11.6-14.6); RBC Distribution Width SD 45.6 fl (35.1-43.9); Red Blood Count 3.27 M/mm3 (4.2-5.4); White Blood Count 10.7 K/mm3 (4.4-11.0)
--- NOTE | 2022-11-04 07:19 | PCM.DC.SUM ---
Providers Date of Admission: 11/03/22 Primary Care Physician: Dr. Daniel Ordonez DO Reason For Visit: REPEAT Diagnosis Discharge Diagnosis (1) Breech presentation: Status: Acute Code(s): O32.1XX0 - Maternal care for breech presentation, not applicable or unspecified (2) Previous delivery affecting : Status: Acute Code(s): O34.219 - Maternal care for unspecified type scar from previous delivery Medications at Discharge Home Medications multivitamin with minerals 10 ml PO DAILY 06/17/21 acetaminophen 500 mg tablet 1,000 mg PO Q6H #0 tabs 11/04/22 ibuprofen 600 mg tablet 600 mg PO Q6H #0 tabs 11/04/22 sennosides 8.6 mg-docusate sodium 50 mg tablet (Stool Softener-Stimulant Laxative) 1 - 2 tab PO DAILY #0 tabs 11/04/22 Hospital Course Operations section Summary of Care Provided Hospital Course: Patient was for a section. Hospital course was uneventful. Physical Exam Narrative Dressing is dry and intact. Patient seen at bedside. Ambulating, showering and voiding without difficulty. Passing flatus. Lochia decreasing. independently. Denies any headache, dizziness, SOB, CP. Desires discharge home today. Const alert and no apparent distress General Appearance: cooperative and comfortable Exam Limitations: no limitations HEENT normocephalic Eyes General Eye: normal appearance of both eyes Neck full ROM General: normal visual inspection Chest Chest: symmetrical chest wall rise Resp normal respiratory effort and normal air movement Effort and Inspection: symmetric chest movement Auscultation: clear to auscultation bilaterally Cardio regular rate and regular rhythm GI normal to inspection, nondistended, normoactive bowel sounds Back/Spine normal ROM Extremity full ROM and no calf tenderness General Extremity: normal exam except as noted Skin no rashes or lesions noted Neuro CN's II-XII intact bilaterally Psych mental status grossly normal Weight / BMI Weight Weight: 176 lb 5.917 oz Body Mass Index (BMI) 27.6 ABG / Lab / Microbiology Data Result Diagrams: 11/04/22 04:50 Laboratory: Laboratory Results - last 24 hr 11/03/22 09:55: WBC 6.3, RBC 3.78 L, Hgb 12.5, Hct 35.3 L, MCV 93.4, MCH 33.1 H, MCHC 35.4, RDW Std Deviation 44.7 H, RDW Coeff of Olga 13.1, Plt Count 225, MPV 9.4, Immature Gran % (Auto) 0.500, Neut % (Auto) 68.6, Lymph % (Auto) 23.2, [place] % (Auto) 6.4, Eos % (Auto) 0.8, Baso % (Auto) 0.5, Absolute Neuts (auto) 4.3, Absolute Lymphs (auto) 1.46, Nucleated RBC % 0 11/03/22 09:55: Blood Type A NEGATIVE, Antibody Screen POSITIVE, Antibody Identification ANTI-D 11/03/22 09:55: Syphilis Total Ab Non-reactive 11/04/22 04:50: WBC 10.7, RBC 3.27 L, Hgb 10.7 L, Hct 31.4 L, MCV 96.0, MCH 32.7 H, MCHC 34.1, RDW Std Deviation 45.6 H, RDW Coeff of Olga 13.1, Plt Count 184, MPV 8.7 D/C Instructions Discharge Diet: No restrictions Discharge Activity: May Shower May resume sexual activity in: 6-8 weeks Weight Bearing Status: Weight bearing as tolerated Call your doctor if your incision/area has: Continuous Slow Oozing, Sudden Increased Bleeding, Increased Pain/ Swelling, Increased Redness, Foul Smelling Discharge and Swelling at the incision site Call your doctor if you observe: Fever of 101 or Higher, Numbness or Tingling, Inability to urinate, Using more than 1 pad per hour, Shortness of breath, Dizziness, Chest pain, Calf discomfort and Uncontrolled pain Change Dressing in: leave in place till F/U Cleanse incision/area with: Soap & Water Please Follow Up With: Jennifer Mi MD When: within 10 days Meaningful Use Info Meaningful Use Diagnoses (Choose all that apply): None applicable Discharge Plan Admission Admit Date/Time: 11/03/22 09:25 Primary Reason for Your Visit: Repeat section Attending Provider: Jennifer Mi Primary Care Provider: Daniel Ordonez Discharge Orders/Prescriptions Prescriptions: New sennosides-docusate sodium [Stool Softener-Stimulant Laxat] 8.6-50 mg Tablet 1 - 2 tab PO DAILY Qty: 0 0RF acetaminophen 500 mg Tablet 1,000 mg PO Q6H Qty: 0 0RF ibuprofen 600 mg Tablet 600 mg PO Q6H Qty: 0 0RF Continued multivitamin with minerals Liquid 10 ml PO DAILY Referrals / Follow Up: Daniel Ordonez DO [Primary Care Provider] - Disposition Disposition (needs filled in before D/C Order can be placed): Home, Self Care
[2022-11-04] MEDS: Senna/Docusate Sodium 1 Tablet PO (10:10)
[2022-11-04] MEDS: Ibuprofen 600 MG Tablet PO (14:15)
== END 2022-11-04 16:00 | disposition home or self-care (01) | DRG 788 ==
PROVIDERS: Admitting Provider Obstetrics & Gynecology; PCP Family Medicine; Visit Provider Obstetrics & Gynecology
PROC: 10D00Z1 Extraction of Products of Conception, Low, Open Approach (ICD-10-PCS; CPT 59514; principal; 2022-11-03 11:45)
DX: O32.1XX0 Maternal care for breech presentation, not applicable or unspecified (principal); O26.893 Other specified pregnancy related conditions, third trimester; O34.219 Maternal care for unspecified type scar from previous cesarean delivery; Z67.11 Type A blood, Rh negative; Z3A.39 39 weeks gestation of pregnancy; Z37.0 Single live birth; Z87.59 Personal history of other complications of pregnancy, childbirth and the puerperium
CPT/HCPCS: 59025; 59050; 85025; 85027; 86780; 86850; 86870; 86900; 86901; 99221; 99252; J7120; A4216; G0378; G0463; J2405

== ENCOUNTER 2023-03-20 19:52 | Emergency (ER) | payer OTHER, SELFPAY ==
[2023-03-20 19:54] VITALS: BP 119/80; PULSE 87; RESP 16; TEMP 36.6; O2SAT 100; BMI 11.2
--- NOTE | 2023-03-20 20:07 | EKG12_ITS ---
Test Reason : PALPATATIONS Blood Pressure : / mmHG Vent. Rate : 084 BPM Atrial Rate : 084 BPM P-R Int : 144 ms QRS Dur : 100 ms QT Int : 390 ms P-R-T Axes : 057 028 033 degrees QTc Int : 460 ms Normal sinus rhythm Normal ECG Confirmed by JANINA ELLISON, CURTIS ([id number]), film editor SIMONE TYSON ([id number]) on 03/22/2023 1:25:49 PM Referred By: Confirmed By:CURTIS ROA MD
--- NOTE | 2023-03-20 20:08 | EX.ED.DYSGE1 ---
HPI History of Present Illness Chief Complaint: Shortness of Breath Detail of Chief Complaint: Palpitations and shortness of breath Informant: patient Narrative Narrative: Patient presents to the emergency department with complaint of feeling palpitations since yesterday. Patient felt like they be more more frequent today and felt them about 20 times. Patient then began feeling short of breath and then she got numb and tingly in her hands and felt like she was going to pass out. EMS was called. Patient is 4 months via . No history of PE or DVT. She denies recent travel. Currently she is without chest pain or shortness of breath and her paresthesias have resolved. No history of panic attacks or anxiety. [facility] Medical History Intact amniotic membranes IUFD at less than 20 weeks of gestation Septate uterus (spontaneous vaginal delivery) Uterine anomaly Home Medications NK 03/20/23 [History Last Taken Unknown] lorazepam 1 mg tablet (Ativan) 1 mg PO TID PRN anxiety #10 tabs 03/20/23 [Rx Last Taken Unknown] Allergy/AdvReac Type Severity Reaction Status Date / Time No Known Allergies Allergy Verified 03/20/23 19:53 Surgical History Previous delivery affecting , antepartum Previous section Social History Smoking Status: Never smoker ROS ROS ED Review of Systems ROS Unobtainable: other Constitutional Constitutional ED: Reports lethargy; Denies chills, fever(s), sweats or weight loss Eyes Eyes: Denies blurry vision, change in vision or diplopia ENT ENT ED: Denies rhinorrhea or sore throat Cardiovascular Cardiovascular: Reports palpitations and racing heartbeat; Denies chest pain or orthopnea Respiratory/Chest Respiratory/Chest: Reports dyspnea; Denies cough, dyspnea on exertion, orthopnea or sputum Gastrointestinal Gastrointestinal: Denies abdominal pain, diarrhea, nausea or vomiting Genitourinary Genitourinary ED: Denies dysuria, hematuria or urinary frequency Musculoskeletal Musculoskeletal: Denies arthralgias, back pain, myalgias or neck pain Integumentary Denies abscess, Abrasions or rash Neurologic Neurologic: Denies headache(s) or weakness Psychiatric Psychiatric: Denies anxiety, depression or suicidal thoughts Endocrine Endocrinology: Denies polydipsia, polyphagia or polyuria Hematologic/Lymphatic Hematologic/Lymphatic: Denies easy bleeding, easy bruising or lymphadenopathy Allergic/Immunologic Allergic/Immunologic ED: Denies mouth swelling, tongue swelling or urticaria EXAM Physical Exam Const Vital Signs: 03/20/23 19:54 03/20/23 19:54 03/20/23 21:40 Temperature 97.8 F Temperature Source Temporal Pulse Rate 87 84 Respiratory Rate 16 18 Respiratory Effort Normal Respiratory Pattern Normal Blood Pressure 119/80 113/79 Blood Pressure Mean 93 Pulse Ox 100 99 Oxygen Delivery Method Room Air Positive well nourished and well developed General Appearance ED: well developed and NAD HEENT Reports TM's clear and moist mucous membranes normocephalic and atraumatic; Negative for trauma or tenderness Tympanic Membrane ED: Yes TM's clear Eyes PERRL and EOMs intact bilaterally General Eye ED: Negative for pale conjunctiva or scleral icterus Neck no lymphadenopathy, supple and no JVD General: Negative for tenderness Chest Wall inspection of chest normal and palpation of chest normal Chest: Negative for tenderness Resp normal respiratory effort and clear to auscultation bilaterally Effort and Inspection: Negative for respiratory distress or pain with movement Auscultation: Negative for rhonchi, wheezes or diminished lung sounds Cardio regular rate, regular rhythm, S1 normal heart sound, S2 normal heart sound and no murmurs Peripheral Pulses: pulses 2+ throughout GI normal to inspection, nondistended, normoactive bowel sounds, soft to palpation, non-tender, non-distended and no masses Back/Spine no CVA tenderness and no thoracic nor lumbar tenderness Extremity normal to inspection General Extremety ED: Negative for edema General Extremity: Negative for edema Neuro oriented x3, CN's II-XII intact bilaterally, no sensory deficits noted and gait normal Sensorium / Orientation: awake, alert, oriented to person, oriented to place and oriented to time Motor Exam: strength 5/5 throughout and strength abnormal Psych mental status grossly normal Skin no rashes or lesions noted and no wounds MDM MDM MDM Narrative Medical decision making narrative: Patient presents with palpitations and sensation of feeling like she is in a pass out. She complains of shortness of breath and hands becoming tingly. In the differential would be cardiac dysrhythmia versus PVCs or PACs. Anxiety disorder, PE, or other abnormality. EKG obtained on arrival showed a sinus rhythm with a ventricular rate of 84 bpm with no acute ST segment changes. No ectopy noted. CBC with differential was normal. Chemistries unremarkable other than a slightly depressed potassium of 3.3 for which I did order 40 mEq of potassium chloride p.o. Serum hCG was negative. Troponin was normal at 3. Patient has been on the potline monitor and I have not appreciated any ectopy. Patient currently has no complaints. I discussed with patient placing a Holter monitor to try to capture some of these palpitations and follow-up with cardiology. She would prefer not to do that and would like to maybe follow-up with cardiology. I suspect she may have had an anxiety attack also given the dyspnea and paresthesias in the hands and sensation of feeling like she was in a pass out. I will write her a prescription for some Ativan for as needed. She will be referred to cardiology for follow-up. She is advised to return if chest pain severe tachycardia, syncope, or condition should worsen anyway. Lab Data Attestation: I reviewed the patient's lab results. Labs: Laboratory Results - last 24 hr 03/20/23 20:16 WBC 5.2 RBC 4.48 Hgb 13.4 Hct 39.8 MCV 88.8 MCH 29.9 MCHC 33.7 RDW Std Deviation 38.9 RDW Coeff of Olga 11.9 Plt Count 253 MPV 9.3 Immature Gran % (Auto) 0.200 Neut % (Auto) 39.9 L Lymph % (Auto) 48.4 H [place] % (Auto) 9.0 Eos % (Auto) 1.7 Baso % (Auto) 0.8 Absolute Neuts (auto) 2.1 Absolute Lymphs (auto) 2.53 Nucleated RBC % 0 D-Dimer Quant (PE/DVT) < 0.27 L Sodium 135 L Potassium 3.3 L Chloride 101 Carbon Dioxide 27.0 Anion Gap 7 BUN 14 Creatinine 0.76 Estim Creat Clear Calc 56.82 Est GFR (MDRD) Af Amer 115 Est GFR (MDRD) Non-Af 95 BUN/Creatinine Ratio 18.3 Glucose 104 Calcium 9.2 Troponin I High Sens 3 Serum , Qual NEGATIVE Radiography Diagnostic Testing: Clinical Impression(s) from Imaging Studies Chest X-Ray 03/20/23 20:15 IMPRESSION: Normal x-ray examination of the chest. Electronically Signed: Kiel aHgan MD at 20:57 EDT , 1 view chest x-ray obtained interpreted by myself as no evidence of infiltrate or pneumothorax or acute disease process. Radiology in agreement. Discharge Plan Triage Chief Complaint: Shortness of Breath ED Provider: Dariusz Aguayo Dx/Rx/DC Orders Clinical Impression: Palpitation, Anxiety Instructions: ED Anxiety Reaction, ED Palpitations Prescriptions: New lorazepam [Ativan] 1 mg tablet 1 mg PO TID PRN (Reason: anxiety) Qty: 10 0RF No Action NK Primary Care Provider: Daniel Ordonez Referrals: Clarence Root MD [Med Staff - Active Staff] - 3-5 Days Daniel Ordonez DO [Primary Care Provider] - Disposition Disposition: Home, Self Care Discharge Date/Time: 03/20/23 21:41
--- NOTE | 2023-03-20 20:15 | RAD_ITS ---
STUDY: X-RAY CHEST REASON FOR EXAM: Female, 27 years old. dyspnea TECHNIQUE: Single AP portable view of the chest. COMPARISON: None. FINDINGS: The lungs are clear and expanded. There is no demonstrated pleural abnormality. Normal size heart. Normal mediastinum and kamille. Normal visualized pulmonary arteries. Normal visualized aortic arch and descending thoracic aorta. Normal visualized thoracic spine. Normal visualized ribs, clavicles, and shoulders. There is no demonstrated abnormality of the visualized soft tissue structures of the upper abdomen. RAD/Chest 1 View (Portable) IMPRESSION: Normal x-ray examination of the chest. Electronically Signed: Kiel Hagan MD at 20:57 EDT ,
[2023-03-20 20:24] LABS: Absolute Lymphocyte Count 2.53 X10^3/uL (0.83-4.51); Absolute Neutrophil Count 2.1 X10^3/uL (2.0-7.7); Basophil# 0.04 X10^3/uL; Basophil% 0.8 % (0-1); Eosinophil# 0.09 X10^3/uL; Eosinophils% 1.7 % (0-5); Hematocrit 39.8 % (37-47); Hemoglobin 13.4 g/dL (12.0-15.0); Lymphocyte # 2.53 X10^3/ul (0.83-4.51); Lymphocyte % 48.4 % (19-41); Mean Corp Hgb Conc 33.7 g/dL (32-36); Mean Corpuscular Hgb 29.9 pg (27.0-32.0); Mean Corpuscular Volume 88.8 fL (81-99); Mean Platelet Vol. 9.3 fl (6.2-12.0); Monocyte# 0.47 X10^3/uL; NRBC Flagged by Analyzer 0 % (0-5); Neutrophil # 2.09 X10^3/uL (2.7-7.7); Neutrophil % 39.9 % (47-70); Platelet Count 253 K/mm3 (150-450); RBC Distribution Width CV 11.9 % (11.6-14.6); RBC Distribution Width SD 38.9 fl (35.1-43.9); Red Blood Count 4.48 M/mm3 (4.2-5.4); White Blood Count 5.2 K/mm3 (4.4-11.0)
[2023-03-20 20:35] LABS: D-Dimer Quantitative (DVT/PE) < 0.27 FEU/ug/m (0.27-0.49)
[2023-03-20] MEDS: 0.9% Normal Saline 1,000 ML 150 ML IV (20:41)
[2023-03-20 20:49] LABS: Internal QC Validated? YES +Cl - CLEAR BKGD; Pregnancy, Serum, hCG Quali. NEGATIVE Negative
[2023-03-20 20:58] LABS: Anion Gap 7 (5-15); BUN 14 mg/dL (7-18); BUN/Creat Ratio 18.3 RATIO (10-20); Calcium,Total 9.2 mg/dL (8.5-10.1); Chloride 101 mmol/L (98-107); Creatinine, Serum 0.76 mg/dL (0.55-1.02); EST Glomerular Filtration Rate 95 mL/min (>60); Est Glom Filt Rate - Afr Amer 115 mL/min (>60); Estimated Creatinine Clearance 56.82 ml/min; Glucose 104 mg/dL (74-106); Potassium 3.3 mmol/L (3.5-5.1); Sodium Level 135 mmol/L (136-145); Troponin-I HS 3 pg/mL (3.0-54.0)
[2023-03-20] MEDS: Potassium Chloride Oral Tablet 20 MEQ 40 MEQ PO (21:33)
[2023-03-20 21:40] VITALS: BP 113/79; PULSE 84; RESP 18; O2SAT 99
== END 2023-03-20 21:41 | disposition home or self-care (01) ==
PROVIDERS: Emergency Provider Emergency Medicine; PCP Family Medicine; Visit Provider Emergency Medicine
DX: R00.2 Palpitations (principal); F41.9 Anxiety disorder, unspecified; R06.02 Shortness of breath
CPT/HCPCS: 71045; 80048; 84484; 84703; 85025; 85379; 93005; 99285; A4216

== ENCOUNTER 2024-05-15 01:53 | Inpatient (IN) | payer SELFPAY, OTHER ==
[2024-05-15] VITALS (24 sets, daily range): BP systolic 106–132; BP diastolic 59–88; PULSE 53–105; RESP 14–16; TEMP 36.1–37.2; O2SAT 97–100; BMI 27.6
[2024-05-15 01:14] LABS: Color, Urine Yellow (Yellow); Glucose, Dipstick Normal (Normal); Ketone-Dipstick Negative (Negative); Leukocyte Esterase-Dipstick Negative /ul (Negative); Nitrite-Dipstick Negative (Negative); Occult Blood-Urine 10 /ul (Negative); Protein-Dipstick Negative (Negative); Specific Gravity, Urine 1.005 (1.002-1.030); Urine Bilirubin Dipstick Negative (Negative); Urine Clarity Clear (Clear); Urine Urobilinogen Normal (Normal)
[2024-05-15 01:39] LABS: ROM Internal Control Test YES-OK TO RESULT pt. (Internal QC)
[2024-05-15 01:40] LABS: ROM Patient Test POSITIVE (Negative); Record Kit Lot#, ROM+ K1660
[2024-05-15] MEDS: Betamethasone/Betamethasone 30 MG/5 ML Vial 12 MG IM (02:18)
[2024-05-15] MEDS: Lactated Ringers 1,000 ML 150 ML IV (02:25)
[2024-05-15 02:42] LABS: Absolute Lymphocyte Count 2.36 X10^3/uL (0.83-4.51); Absolute Neutrophil Count 9.1 X10^3/uL (2.0-7.7); Basophil# 0.05 X10^3/uL; Basophil% 0.4 % (0-1); Eosinophil# 0.08 X10^3/uL; Eosinophils% 0.6 % (0-5); Hematocrit 35.3 % (37-47); Lymphocyte # 2.36 X10^3/ul (0.83-4.51); Lymphocyte % 18.9 % (19-41); Mean Corpuscular Hgb 30.6 pg (27.0-32.0); Mean Corpuscular Volume 90.1 fL (81-99); Mean Platelet Vol. 9.6 fl (6.2-12.0); Monocyte# 0.79 X10^3/uL; Monocyte% 6.3 % (0-10); NRBC Flagged by Analyzer 0 % (0-5); Neutrophil # 9.12 X10^3/uL (2.7-7.7); Neutrophil % 73.3 % (47-70); Platelet Count 262 K/mm3 (150-450); RBC Distribution Width CV 12.9 % (11.6-14.6); RBC Distribution Width SD 41.6 fl (35.1-43.9); Red Blood Count 3.92 M/mm3 (4.2-5.4); White Blood Count 12.5 K/mm3 (4.4-11.0)
[2024-05-15 02:55] LABS: Amphetamine Urine VISTA NEGATIVE (<1000 ng/mL); Barbiturate Urine VISTA NEGATIVE (< 200 ng/mL); Benzodiazepine Urine VISTA NEGATIVE (< 200 ng/mL); Cocaine Urine VISTA NEGATIVE (< 300 ng/mL); Ecstacy Urine VISTA NEGATIVE (< 500 ng/mL); Methadone Urine VISTA NEGATIVE (< 300 ng/mL); PCP Urine VISTA NEGATIVE (< 25 ng/mL); THC Urine VISTA NEGATIVE (< 50 ng/mL)
[2024-05-15 03:27] LABS: HIV - WCH Non-Reactive (Nonreactive); Rubella IgG Reactive (Nonreactive); Syphilis Antibodies Non-reactive
[2024-05-15 04:15] LABS: Bedside Glucose 86 mg/dL (74-106)
[2024-05-15] MEDS: Lactated Ringers 1,000 ML 999 ML IV (05:06)
[2024-05-15] MEDS: Acetaminophen 500 MG Tablet 1000 MG PO ×3 (05:50→22:41)
[2024-05-15] MEDS: Sodium Citrate/Citric Acid 30 ML UDC PO (06:03)
--- NOTE | 2024-05-15 06:03 | PCM.HP.OB ---
HPI - General General Date of Admission: 05/15/24 HPI Narrative ROGERIO ARAMBULA, is a 28 y/o @ 34 weeks 5 days who presents to L&D with ROM and 3 prior sections. She sees a darkroom technician in [place]. She thinks her water broke late Gu[place] night. No fevers or chills. She denies desire for permanent sterilization. Upon admission early this am, celestone x 1 was ordered and she has received this. Patient has a known septate uterus. She has also suffered a loss at 19 weeks (IUFD) [facility] Medical History Intact amniotic membranes IUFD at less than 20 weeks of gestation Septate uterus (spontaneous vaginal delivery) Uterine anomaly Home Medications ?Medication ?Instructions ?Recorded ?Last Taken ?Type PNV#14-iron fum-FA#0-[id number] cap PO 05/15/24 05/14/24 History 27 mg iron-1 mg-300 mg-50 mg capsule aspirin 81 mg capsule 81 mg PO DAILY 05/15/24 05/12/24 History progesterone 50 mg/mL 100 mg IM .2x per week 05/15/24 05/11/24 History intramuscular oil Allergy/AdvReac Type Severity Reaction Status Date / Time No Known Allergies Allergy Verified 05/15/24 00:51 Surgical History Previous delivery affecting , antepartum Previous section Social History Smoking Status: Never smoker History Elective abortions Hx Para 3 Spontaneous abortions Hx # Term Pregnancies Ectopic pregnancies Hx # Pregnancies Multiple births # of living children ROS Constitutional Constitutional: Denies change in weight, fatigue, fever(s), headache(s), poor appetite or weakness Eyes Eyes: Denies blurry vision, change in vision, seeing flashes or spots in vision ENT HEENT: Denies dizziness, headache(s), loss taste/smell or sore throat Cardiovascular Cardiovascular: Denies chest pain, dizziness, dyspnea, irregular heart rhythm, leg edema, palpitations, rapid heart rate or vomiting Respiratory/Chest Respiratory/Chest: Denies chest tightness, cough, dyspnea or breast pain Gastrointestinal Gastrointestinal: Denies abdominal pain, anorexia, constipation, cramping, diarrhea, hemorrhoids, vomiting or weight changes Genitourinary Genitourinary: Denies dysuria, flank pain, genital lesions, genital pain, urinary frequency or urinary urgency Musculoskeletal Musculoskeletal: Denies back pain, difficulty walking, joint pain, limited range of motion, muscle cramps or numbness Integumentary Integumentary: Denies lesions or unusual bruising Neurologic Neurologic: Denies abnormal movements, abnormal speech, dizziness, numbness, seizure-like activity or syncope Psychiatric Psychiatric: Denies anxiety, behavioral changes, change in appetite, change in libido, cognitive impairment, confusion, depression, difficulty concentrating, hallucinations or suicidal thoughts Endocrine Endocrinology: Denies excessive sweating, polydipsia or polyuria Hematologic/Lymphatic Hematologic/Lymphatic: Denies easy bleeding, easy bruising or lymphadenopathy Allergic/Immunologic Allergic/Immunologic: Denies itchy eyes, lip swelling, seasonal rhinorrhea, rhinitis, throat swelling, tongue swelling, eczemia, wheezing or asthma Vital Signs Vital Signs Vital Signs: 05/15/24 02:05/15/24 02:09 05/15/24 02:35 Temperature Temperature Source Pulse Rate 105 H 83 Respiratory Rate Blood Pressure 129/75 H Blood Pressure Mean BP Systolic 129 BP Diastolic 75 Blood Pressure Source Blood Pressure Position Blood Pressure Location Pulse Ox Oxygen Delivery Method 05/15/24 02:35 05/15/24 02:35 Temperature 98.9 F Temperature Source Temporal Pulse Rate 90 Respiratory Rate 16 Blood Pressure 129/75 H Blood Pressure Mean 93 BP Systolic BP Diastolic Blood Pressure Source Monitor Blood Pressure Position Semi-Fowlers Blood Pressure Location Left Arm Pulse Ox 97 97 Oxygen Delivery Method Room Air Weight Weight: 176 lb 5.917 oz Body Mass Index (BMI) 27.6 Physical Exam Const alert, oriented x3, no apparent distress and healthy appearing General Appearance: cooperative; Negative for anxious HEENT normocephalic Face and Sinus: normal facial exam Eyes EOMs intact bilaterally and no scleral icterus General Eye: normal appearance of both eyes Neck full ROM and supple Lymph Lymphatic: no lymphadenopathy noted Chest Chest: abnormal inspection of the chest Resp normal respiratory effort Effort and Inspection: able to speak in complete sentences Cardio regular rate GI soft to palpation and non-tender Inspection: gravid Palpation: soft; Negative for tender external exam normal Manual OB Exam: other 0.5 cm dilated per nurse Amniotic Fluid: ROM+plus positive + Back/Spine no CVA tenderness Extremity normal to inspection, full ROM and no clubbing, cyanosis or edema General Extremity: Negative for calf tenderness or edema Skin Lesions: no lesions Rashes: no rashes Psych mental status grossly normal Labs Labs Labs: Blood Type A NEGATIVE Antibody Screen POSITIVE Hct 35.3 % (37-47) L Hgb 12.0 g/dL (12.0-15.0) Obstetrics Ultrasound Syphilis Total Ab Non-reactive Rubella IgG Antibody Reactive (Nonreactive) Hep Bs Antigen Pending Hepatitis C Antibody Pending HIV 1&2 Antibody Non-Reactive (Nonreactive) Rhogam given: Yes Assessment & Plan (1) Premature rupture of membranes (PROM) affecting seventh : (2) 34 weeks gestation of : (3) Complete miscarriage: (4) Rh negative status during : QUALIFIERS: Trimester: second trimester Qualified Code(s): O26.892 - Other specified related conditions, second trimester; Z67.91 - Unspecified blood type, Rh negative (5) Septate uterus: PLAN: Plan After discussing the patient's diagnosis and treatment plan options, patient wishes to proceed with surgical management. I have discussed with the patient the risks, benefits, and alternatives of the procedure which include but are not limited to risks of anesthesia, bleeding, infection, possible damage to bowel, bladder, or surrounding vasculature which could lead to additional surgery to evaluate any complications. Patient agrees to procedure and wishes to proceed. Plan is to proceed with repeat section now.
[2024-05-15 06:07] LABS: Vista UDS pH Range 6
[2024-05-15] MEDS: Cefazolin 2 GM in 0.9% Normal Saline (100mL Bag) 100 ML IV (06:19)
[2024-05-15] MEDS: Azithromycin 500 MG in Dextrose 5%-Water (250mL Bag) 250 ML 250 MG IV (06:45)
--- NOTE | 2024-05-15 08:21 | PCM.OPRPT ---
Report of Operation Date of Procedure: 05/15/24 Pre-Operative Diagnosis: Bladder laceration Post-Operative Diagnosis: Same Surgery/Procedure Performed:: Repair bladder laceration, cystoscopy with bilateral ureteral catheterization Surgeon: Quynh Means Type of Anesthesia: Spinal/Supplemental Description of Procedure: The patient is a 28-year-old female who just delivered a baby via section when it was noticed that the bladder was adhesed to the uterus and a laceration approximately 1 cm in length was identified at the dome of the bladder. Dissection of the bladder away from the uterine wall was performed releasing any tension on the area of laceration. The total length of the laceration was identified and isolated. The laceration was closed in 3 layers first with 3-0 chromic on the bladder mucosa followed by running 3-0 Vicryl for the detrusor followed by imbricating 2-0 Vicryl including the bladder serosa. At this time the catheter was retrograde filled with sterile saline revealing no evidence of leak. The patient was placed into a frog-leg position and was prepped and draped for cystoscopic evaluation. The cystoscope was inserted through the urethra under direct visualization into the urinary bladder. No hemorrhage was identified. The ureteral orifices were not involved in the laceration. A 5 Colombian whistle-tip catheter was used to gently cannulate the left ureteral orifice and it easily advanced to 20 cm without evidence of obstruction or injury. This process was then repeated on the patient's right side with the same findings. At this time the 70 degree lens was utilized to further visualize the actual dome laceration and there is no hemorrhage or opening identified. The cystoscope was then removed and a Jaime catheter was inserted to straight drain. The cystoscopic fluid was clear on drainage into the catheter. The balloon was filled with 10 cc of sterile water. The case was then turned back over to Dr. Walter. Grafts/Implants Used: None Complications None Admit VTE Documentation VTE Present on Admission: Yes VTE Mechan Device Prophylaxis: SCD's VTE Pharm Prophylaxis ordered?: No Reason prophylaxis not ordered:: Treatment Not Indicated
--- NOTE | 2024-05-15 08:29 | PCM.CONS.GEN ---
Assessment & Plan Assessment/Plan (1) Intraoperative bladder injury: PLAN: Jaime catheter x 7 days with a cystogram in interventional radiology Trial of void will be performed following the results of the cystogram HPI Consult Data Date of Consult: 05/15/24 HPI Narrative Reason for Consultation: Intraoperative bladder laceration HPI Narrative: ROGERIO ARAMBULA, is a 28 F who presented for delivery. During the section a bladder laceration was identified and I was called in for assistance in repair by the surgeon. The patient was 34 weeks of gestation with premature rupture membranes. [facility] Medical History (Updated 05/15/24 @ 08:[address] Quynh Means MD) Intraoperative bladder injury Breech presentation Uterine anomaly Intact amniotic membranes (spontaneous vaginal delivery) IUFD at less than 20 weeks of gestation Septate uterus Home Medications ?Medication ?Instructions ?Recorded ?Last Taken ?Type PNV#14-iron fum-FA#3-kqf-ebyfprfh cap PO 05/15/24 05/14/24 History 27 mg iron-1 mg-300 mg-50 mg capsule aspirin 81 mg capsule 81 mg PO DAILY 05/15/24 05/12/24 History progesterone 50 mg/mL 100 mg IM .2x per week 05/15/24 05/11/24 History intramuscular oil Allergy/AdvReac Type Severity Reaction Status Date / Time No Known Allergies Allergy Verified 05/15/24 00:51 Surgical History Previous delivery affecting Previous delivery affecting , antepartum Previous section Social History Smoking Status: Never smoker ROS ROS Narrative This was not performed secondary to the operative situation. Physical Exam Narrative The patient was prepped and draped and under anesthesia. I was able to see that there was a uterine anomaly with adhesion of the bladder to the uterine wall. The remainder of the physical examination was not performed secondary to the situation. Lab / Micro Data 05/15/24 02:15 Labs: Laboratory Results - last 24 hr 05/15/24 01:00: Urine Color Yellow, Urine Clarity Clear, Urine pH 7.0, Ur Specific Stanley 1.005, Urine Protein Negative, Urine Glucose (UA) Normal, Urine Ketones Negative, Urine Occult Blood 10 H, Urine Nitrite Negative, Urine Bilirubin Negative, Urine Urobilinogen Normal, Ur Leukocyte Esterase Negative, Vag Amniotic Fld Detect POSITIVE H 05/15/24 02:00: Urine Opiates Screen NEGATIVE, Urine Methadone Screen NEGATIVE, Ur Barbiturates Screen NEGATIVE, Ur Phencyclidine Scrn NEGATIVE, Ur Amphetamines Screen NEGATIVE, MDMA (Ecstasy) Screen NEGATIVE, U Benzodiazepines Scrn NEGATIVE, Urine Cocaine Screen NEGATIVE, U Cannabinoids Screen NEGATIVE, Ur Drug Screen Comment 05/15/24 02:15: WBC 12.5 H, RBC 3.92 L, Hgb 12.0, Hct 35.3 L, MCV 90.1, MCH 30.6, MCHC 34.0, RDW Std Deviation 41.6, RDW Coeff of Olga 12.9, Plt Count 262, MPV 9.6, Immature Gran % (Auto) 0.500, Neut % (Auto) 73.3 H, Lymph % (Auto) 18.9 L, Union % (Auto) 6.3, Eos % (Auto) 0.6, Baso % (Auto) 0.4, Absolute Neuts (auto) 9.1 H, Absolute Lymphs (auto) 2.36, Nucleated RBC % 0, Syphilis Total Ab Non-reactive, HIV 1&2 Antibody Non-Reactive, Rubella IgG Antibody Reactive, Blood Type A NEGATIVE, Antibody Screen POSITIVE, Antibody Identification ANTI-D 05/15/24 03:56: POC Glucose 86 Micro: Microbiology 05/15/24 02:00 Urine, Clean Catch Chlamydia/Neisseria (PCR) - Final 05/15/24 02:30 Genital vaginal Group B Streptococcus (PCR) - Final
[2024-05-15 08:35] LABS: Hepatitis B Surface Antigen Non-Reactive (Nonreactive); Hepatitis C Antibody Non-Reactive (Nonreactive)
--- NOTE | 2024-05-15 08:40 | EX.PCM.OBRPT ---
Assessment & Plan (1) Intraoperative bladder injury: (2) 34 weeks gestation of : (3) Premature rupture of membranes (PROM) affecting seventh : (4) Complete miscarriage: (5) Rh negative status during : QUALIFIERS: Trimester: second trimester Qualified Code(s): O26.892 - Other specified related conditions, second trimester; Z67.91 - Unspecified blood type, Rh negative (6) Septate uterus: Maternal Data Information Final CAROLANN: 06/21/24 Final CAROLANN Source: LMP Gestational age: 34 weeks 5 days Details Operative Information Date of Procedure: 05/15/24 Pre-Operative Diagnosis: premature rupture of membranes, @ 34 weeks 5 days, history of prior sections x 3, no care, antelmo breech Post-Operative Diagnosis: premature rupture of membranes, @ 34 weeks 5 days, history of prior sections x 3, no care, antelmo breech, intraoperative bladder injury Classification: FELI Procedure Type: low transverse public health officer #1: Samir Davis public health officer #2: Quynh Means Type of Anesthesia: Spinal Antibiotic Given: Ancef 2 grams IV x1 and Zithromax 500 mg/5 mL X1 Drain: Woodson to straight drain Estimated Blood Loss: 700cc Procedure Start Time: 06:28 Procedure Stop Time: 08:45 Time of Delivery: 06:34 Findings Description of Procedure: The patient is a 28 y/o who presented for repeat to [facility] without receiving care previously. She states that she saw a underlay stitcher at home. She has a history of 3 prior sections and her membranes were ruptured. Spinal anesthesia was placed without difficulty. Woodson catheter was placed. The patient was placed in the dorsal supine position with leftward tilt. Patient was prepped and draped in the normal sterile fashion. Pfannenstiel skin incision was made with the scalpel and carried through to the underlying layer of fascia with the scalpel. Fascia was nicked in the midline and the incision extended laterally. The rectus bellies were dissected off superiorly and inferiorly with out complication both sharply and bluntly. The peritoneum was entered sharply. The incision was stretched minimally and the bladder was noted to be adherent half way up the uterus. upon attempt to create a bladder flap, the uterus opened with just the slight grasp of the tissue with the reese-dan pick ups. The incision was carefully extended manually. The infants buttocks was grasped and delivered followed by the legs that were noted to be completely flexed. The infant was delivered up to the level of the umbilicus and the arms were swept over the face and out of the uterus. The head then delivered with a loose nuchal cord present. The cord was clamped and cut and the was handed off to awaiting nurse. The placenta was delivered manually immediately following and was noted to be intact and have a three-vessel cord. The uterus was exteriorized cleared of all clots and debris. The uterus was found to have a deep septum and was heart shaped. and the incision was closed in a double layer closure using #1 Vicryl and a #1 Monocryl. The ovaries and fallopian tubes were noted to be within normal limits. The uterus was returned to the maternal abdomen and gutters were cleared of all clots and debris. It was at this time that the woodson catheter was noted to be filling with bright red blood. The uterus was removed again and the woodson was flushed with 120 cc of NS + methylene blue. A tear in the bladder was noted but also the blue dye was seen coming from the uterine incision. The suture on the uterus was then taken down and more of the hole in the bladder was seen on the side of the uterine incision. The uterus was further dissected off the bladder and Dr. Means was called to assist in the closure of the bladder.Before she arrived, I was able to close the uterus again using a single layer of 1- vicryl suture and pass a figure of 8 suture at the laceration site of the bladder to nancy it. When she arrived she further repaired the bladder then performed a cystoscopy (dictated separately). The bladder was noted to be water tight. The Uterus was again returned to the abdomen. The peritoneum was closed with 3-0 Monocryl in a running fashion. Gloves were changed prior to fascial closure. Fascia was closed with 0 PDS in a running fashion. Subcutaneous tissue was copiously irrigated and the skin was closed with 3-0 Monocryl in a subcuticular fashion. Mepilex dressing was applied without complication. Patient was taken to recovery in stable condition. It was discussed with the patient that based on the clinical information obtained during this encounter, combined with her history, at this time I would recommend no further pregnancies as was discussed intraoperatively. I recommended a bilateral tubal ligation and she declined. We discussed that if she does decide for more pregnancies, 36 week repeat section at a tertiary care center may be best for future deliveries. Presentation: Positive for Antelmo Breech Time of Membrane Ruptured: unknown - at home Amniotic Fluid Description: Clear Placental Delivery Description: Manual Removal Placenta Disposition: [facility] Cord Vessel Description: 3 Vessels Cord Entanglement: Around neck x 1, loose Infant A Gender: Male (1 minute): 8 (5 minute): 9 Delayed Cord Clamping: Yes Complications Risks of Surgery Discussed w/Patient: Bleeding, Anesthesia Risks, Infection, Need for Future C-Sections and Injury to surrounding structure(s) including bowel and bladder Complications: bladder injury Multi Select Codes Urinary/Genital Urinary/Genital CPT Codes: 78553 LE laparotomy and 06017 delivery+PP Care([facility])
[2024-05-15] MEDS: Senna/Docusate Sodium 1 Tablet PO (10:01)
[2024-05-15] MEDS: Lactated Ringers 1,000 ML 100 ML IV (10:01)
[2024-05-15] MEDS: Ketorolac 30 MG/ML Syringe IV ×3 (10:02→22:00)
[2024-05-15] MEDS: Cephalexin 500 MG Capsule PO ×2 (10:35→22:41)
[2024-05-15] MEDS: 0.9% Saline Lock 10 ML Syringe IV (15:31)
[2024-05-15] MEDS: Enoxaparin 40 MG/0.4 ML Syringe SC (22:00)
[2024-05-16] VITALS (9 sets, daily range): BP systolic 107–130; BP diastolic 59–77; PULSE 64–83; RESP 16–18; TEMP 36.7–37.1; O2SAT 95–99
[2024-05-16] MEDS: Acetaminophen 500 MG Tablet 1000 MG PO ×4 (04:43→21:55)
[2024-05-16] MEDS: Ketorolac 30 MG/ML Syringe IV (04:43)
[2024-05-16 04:57] LABS: Hematocrit 28.8 % (37-47); Hemoglobin 9.8 g/dL (12.0-15.0); Mean Corpuscular Hgb 30.7 pg (27.0-32.0); Mean Corpuscular Volume 90.3 fL (81-99); Mean Platelet Vol. 9.2 fl (6.2-12.0); Platelet Count 222 K/mm3 (150-450); RBC Distribution Width CV 12.8 % (11.6-14.6); Red Blood Count 3.19 M/mm3 (4.2-5.4); White Blood Count 14.2 K/mm3 (4.4-11.0)
--- NOTE | 2024-05-16 07:37 | PN.OBGYN_ITS ---
Subjective Subjective Patient is laying in bed comfortably without complaints. She states that she slept on an off during the night. Lochia is mild and pain is minimal. Objective Data Objective Data Vital Signs: Vital Signs Temp Pulse Resp BP Pulse Ox O2 Del Method 98.4 F 64 16 109/59 L 95 Room Air 05/15/24 20:06 05/16/24 04:41 05/16/24 07:01 05/16/24 04:41 05/16/24 04:41 05/16/24 07:01 Oxygen Delivery Method Room Air Weight: 176 lb 5.917 oz Body Mass Index (BMI) 27.6 Intake & Output: Intake and Output for Last 24 Hours 05/14/24 05/15/24 05/16/24 23:59 23:59 23:59 Intake Total 3585 / 3585 Output Total 3900 / 3900 1999 Balance -315 / -315 -1999 Lab / Micro Data 05/16/24 04:45 Labs: Laboratory Results - last 24 hr 05/15/24 02:15: Hep Bs Antigen Non-Reactive, Hepatitis C Antibody Non-Reactive 05/16/24 04:45: WBC 14.2 H, RBC 3.19 L, Hgb 9.8 L, Hct 28.8 L, MCV 90.3, MCH 30.7, MCHC 34.0, RDW Std Deviation 42.0, RDW Coeff of Olga 12.8, Plt Count 222, MPV 9.2 Micro: Microbiology 05/15/24 02:00 Urine, Clean Catch Chlamydia/Neisseria (PCR) - Final 05/15/24 02:30 Genital vaginal Group B Streptococcus (PCR) - Final ROS Constitutional Constitutional: Reports systems reviewed and no addt'l complaints, except as documented Cardiovascular Cardiovascular: Denies chest pain, dizziness, dyspnea or irregular heart rhythm Respiratory/Chest Respiratory/Chest: Denies cough, pain on inspiration or shortness of breath at rest Gastrointestinal Gastrointestinal: Denies abdominal pain, nausea or vomiting Genitourinary Genitourinary: Denies burning urination Musculoskeletal Musculoskeletal: Denies muscle cramps, muscle spasms or muscle weakness Neurologic Neurologic: Denies confusion, dizziness, headache(s) or lack of coordination Psychiatric Psychiatric: Denies anxiety, behavioral changes or depression Physical Exam HEENT normocephalic Resp normal respiratory effort and normal air movement GI soft to palpation, non-tender and non-distended Rectal Exam: other Other Details: Incision is clean, dry, and intact no CVA tenderness Extremity normal to inspection General Extremity: edema bilateral (trace ) Assessment & Plan (1) Intraoperative bladder injury: (2) 34 weeks gestation of : (3) Premature rupture of membranes (PROM) affecting seventh : (4) Rh negative status during : QUALIFIERS: Trimester: second trimester Qualified Code(s): O 26.892 - Other specified related conditions, second trimester; Z67.91 - Unspecified blood type, Rh negative (5) Septate uterus: PLAN: Plan s/p LTCS PPD # 1 and repair of bladder injury 1. routine post care 2. breast feeding- support given 3. rh negative work up ordered 4. rubella pending 5. maintain woodson x 7 days, continue keflex 500 bid orally.
[2024-05-16] MEDS: Senna/Docusate Sodium 1 Tablet PO (10:32)
[2024-05-16] MEDS: Cephalexin 500 MG Capsule PO ×2 (10:32→21:55)
[2024-05-16] MEDS: Ibuprofen 600 MG Tablet PO ×3 (11:41→23:46)
--- NOTE | 2024-05-16 13:02 | CASEMGMT ---
Social Work Assessment Labor and Delivery Unit Patient Address: [address] [place] [address] [address], [place] [id number] Phone number: [phone] Date of Referral: 05/15/24 Time of Referral:? 1150 Referred By: Dr. Singh Date of Intervention: 05/16/24 ?? Time of Intervention:? 1020 Reason for Referral:? depression Sw completed chart review and acknowledges social work consult due to maternal mental health. Sw presented to bedside and introduced self to mother of baby (BHUMIKA- Karon). Father of baby, RAIMUNDO- Jeremie, was also present however he was on the phone throughout the duration of sw and MOB conversation. Sw completed psychosocial assessment and provided ongoing support and education to parents. History obtained from: medical records, MOB and FOB Household composition:Currently residing in the family home is RAIMUNDO BAI, their three older children: Iris- 5, Priscilla- 3 and Jose-1. baby to be added to family residence when ready for discharge. Parents deny any issues or concerns with their housing. Patient's parent/guardian status:? ?BHUMIKA reports that she and RAIMUNDO have been together of 7 years after meeting each other in the same youth group. No concerns of domestic violence or intimate partner violence noted. Medical History: ?BHUMIKA is 28 year old female who is 7, para 3- now 4 following labor and delivery of . BHUMIKA received routine care during with [facility]. BHUMIKA presented to hospital due to concern that her water had broken. BHUMIKA delivered baby at 34 weeks via delivery. Baby girl, named Luma, was born weighing 5lb 7oz with apgars of 8 and 9 at one and five minutes of life respectfully. Baby was transferred to [facility] due to prematurity and respiratory distress. No discharge identified for baby at this time. Educational Status:? Both parents completed 8th grade as is customary in [facility] culture. 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 MOB is a stay at home mom. Infant Supplies: BHUMIKA reports to having all necessary baby supplies, including: car seat, safe sleep space, clothes, diapers and wipes. Childcare/Caregiver(s):? MOB will be the primary caregiver to baby, along with FOB when he is not working. Transportation:??Parents primary mode of transportation is by horse and buggy, and they rely on a hired goat driver when they need to travel longer distances. Programs/Agencies Involved: Parents are not connected to any community resources that assist them financially. Children Services/Legal Issues:?No history of children services involvement, no issues or concerns warranting children services referral to be made at this time. Behavioral Health Issues: ??Mental Health History:?RAIMUNDO denies mental health history. BHUMIKA states that she has had anxiety in the past and has experienced depression. MOB states that after some of her children were born, she noticed that she started to struggle with her mental health around month 3 . MOB states that during that time she feels down and overwhelmed and unmotivated to do daily tasks. BHUMIKA states that she has never been to counseling and is not prescribed any medications to help manage these symptoms. ?? Substance Use History:?Parents deny substance use prior to and during . ? Family History:?Parents deny family history of substance use or significant mental health diagnoses? Drug Screens: No drug screens observed in chart review. Family/Social Stressors:? Parents deny any issues, concerns or stressors at this time. Sw assessed as to how parents are coping since baby requires admission to [facility]. Parents report that they are taking it one day at a time and are doing their best to be patient and are praying. Support Systems: BHUMIKA identifies that RAIMUNDO, her mom and other family members are her/ their biggest supports at this time. Maternal grandma is helping to care for the older children while MOB and FOKe are at the hospital. Depression/Shaken Baby/Safe Sleeping: [employer] educated parents at length regarding signs and symptoms of baby blues and mood and anxiety disorders to be on the lookout for during this period. MOB reports that she feels comfortable talking to FOB if she were to feel like her mental health is being impacted during this time frame. FOB states that he believes he would be able to recognize if MOB were struggling, but he may now know how to help her. Sw encouraged parents to have a conversation regarding how FOKe and other family members can best help and support MOB if she were to experience a change in her mental status during this period. Parents open and receptive to these recommendations/ suggestions. Sw educated parents on shaken baby prevention and ABCs of safe sleep. Parents express understanding. ASSESSMENT:? MOB currently admitted following delivery on 05/15/24. Sims baby required transfer to [facility] due to prematurity at 34 weeks gestation and respiratory distress. Baby does not have an identified discharge at this time. MOB and FOB both engaging and participated in conversation/ assessment. MOB open to talk about her mental health experiences after prior deliveries, and states that she hopes that she does not struggle with her mental health after this delivery, but is also familiar with what her symptoms look like. MOB states that if she does struggle with concerns during this time she will talk to her natural supports and tell them ways they can help her. Parents were receptive to involvement and support. Parents have obtained all baby supplies, but report they may need to get premie diapers depending on baby's weight when she is ready for discharge. Parents provided information on [employer] [facility], they want to think about it. PLAN:?? No other services requested or indicated. MOB and baby to be discharged when medically ready. Parents were provided literature regarding: signs and symptoms of baby blues and mood and anxiety disorders, [facility] Me [facility], shaken baby prevention, ABCs of safe sleep and a list of [facility] [facility] resources that are available for them should any needs present themselves. Khang Jeong, CUSTOMER SUPPORT CONSULTANT, LICENSED CLINICIAN
--- NOTE | 2024-05-16 13:42 | NURSING ---
Educated on woodson catheter care and how to drain bag. Per patient, she prefers to keep full sized bag but is aware that leg bag is an option. Verbalized understanding.
[2024-05-17 02:50] VITALS: BP 119/89; PULSE 69; RESP 14; TEMP 36.4; O2SAT 98
[2024-05-17] MEDS: Acetaminophen 500 MG Tablet 1000 MG PO ×3 (04:19→18:00)
[2024-05-17] MEDS: Ibuprofen 600 MG Tablet PO ×3 (05:58→23:03)
[2024-05-17 07:27] VITALS: BP 123/74; PULSE 70; RESP 16; TEMP 36.7; O2SAT 99
--- NOTE | 2024-05-17 07:57 | PCM.PN.OB ---
Subjective Subjective Patient doing well without complaints. Tolerating PO. Ambulating without difficulty. Jaime cath in place, draining light yellow urin. Denies chest pain, shortness of breath, calf pain/swelling, fevers, chills, lightheadedness. States pain is well controlled. Baby Luma doing well, in SCN. IV only. Objective Data Objective Data Vital Signs: Vital Signs Temp Pulse Resp BP Pulse Ox O2 Del Method 98.1 F 70 16 123/74 H 99 Room Air 05/17/24 07:27 05/17/24 07:27 05/17/24 07:27 05/17/24 07:27 05/17/24 07:27 05/17/24 07:27 Oxygen Delivery Method Room Air Weight: 176 lb 5.917 oz Body Mass Index (BMI) 27.6 Intake & Output: Intake and Output for Last 24 Hours 05/15/24 05/16/24 05/17/24 23:59 23:59 23:59 Intake Total 3585 / 3585 Output Total 3900 / 3900 6350 / 6350 900 / 900 Balance -315 / -315 -6350 / -6350 -900 / -900 Lab / Micro Data 05/16/24 04:45 Micro: Microbiology 05/15/24 01:00 Urine, Clean Catch Urine Culture - Final Mixed Gram Positive Organisms 05/15/24 02:00 Urine, Clean Catch Chlamydia/Neisseria (PCR) - Final 05/15/24 02:30 Genital vaginal Group B Streptococcus (PCR) - Final Physical Exam Const alert and oriented x3 HEENT normocephalic Eyes PERRL Neck full ROM Resp normal respiratory effort GI soft to palpation GI Narrative: FF below U. Dressing dry and intact Palpation: tender other (appropriately) Assessment & Plan (1) Status post delivery: COMMENT: 05/15/24 no doc pt rpt cs & bladder injury with repair under Dr Means , 3 previous csec, No PNC, Jagdeep breech, Spinal (2) Intraoperative bladder injury: (3) Septate uterus: PLAN: Plan s/p LTCS PPD # 2 1. routine post care 2. breast feeding- support given 3. rh negative 4. rubella immune
[2024-05-17] MEDS: Cephalexin 500 MG Capsule PO ×2 (09:42→23:18)
[2024-05-17] MEDS: Senna/Docusate Sodium 1 Tablet PO (09:43)
[2024-05-17 13:43] VITALS: BP 130/79; PULSE 61; RESP 14; TEMP 36.8; O2SAT 98
[2024-05-17 16:41] VITALS: RESP 16
[2024-05-17 21:05] VITALS: BP 123/64; PULSE 73; RESP 16; TEMP 36.8
[2024-05-18 02:30] VITALS: BP 121/92; PULSE 60; RESP 16; TEMP 36.7; O2SAT 97
[2024-05-18 09:03] VITALS: BP 125/81; PULSE 82; RESP 16; TEMP 36.6; O2SAT 98
--- NOTE | 2024-05-18 09:31 | PCM.DC.SUM ---
Providers Date of Admission: 05/15/24 Primary Care Physician: Dr. Daniel Ordonez DO Reason For Visit: REPEAT C SECTION Diagnosis Discharge Diagnosis (1) Status post delivery: Status: Acute Code(s): Z98.891 - History of uterine scar from previous surgery (2) Intraoperative bladder injury: Status: Acute Code(s): N99.81 - Other intraoperative complications of genitourinary system (3) Septate uterus: Status: Acute Code(s): Q51.28 - Other and unspecified doubling of uterus Plan s/p LTCS PPD # 1 and repair of bladder injury 1. routine post care 2. breast feeding- support given 3. rh negative work up ordered 4. rubella pending 5. maintain woodson x 7 days, continue keflex 500 bid orally. Medications at Discharge Home Medications PNV#14-iron [id number] 27 mg iron-1 mg-300 mg-50 mg capsule cap PO 05/15/24 cephalexin 500 mg capsule 500 mg PO BID #14 caps 05/15/24 ibuprofen 600 mg tablet 600 mg PO Q6H PRN pain #30 tabs 05/15/24 oxycodone-acetaminophen 5 mg-325 mg tablet (Percocet) 1 tab PO Q4H PRN pain 7 days #20 tabs 05/15/24 progesterone 50 mg/mL intramuscular oil 100 mg IM .2x per week 05/15/24 Hospital Course Operations None, section and - (repair of bladder laceration ) Summary of Care Provided Minutes Spent on Discharge: 30 Hospital Course: The patient was admitted for a repeat section on 05/15/24 at 34 weeks for SROM, breech and 3 prior sections. During surgery there was an incidental bladder laceration and marked amount of scar tissue and a thin lower uterine segment. Surgery was 2.5 hrs to repair the laceration and perform cystoscopy, with the help for Dr. Means. On day #1 she was recovering well with woodson in place and no blood present. On post op #2 she was starting to ambulate better and pain noted to be minimal. On Post op day #3 she was moving out of bed without assistance and ready for discharge to home. Physical Exam HEENT normocephalic Resp normal respiratory effort and normal air movement GI soft to palpation, non-tender and non-distended Rectal Exam: other Other Details: Incision is clean, dry, and intact no CVA tenderness Extremity normal to inspection General Extremity: edema bilateral (trace ) Weight / BMI Weight Weight: 176 lb 5.917 oz Body Mass Index (BMI) 27.6 ABG / Lab / Microbiology Data 05/16/24 04:45 Microbiology: Microbiology 05/15/24 01:00 Urine, Clean Catch Urine Culture - Final Mixed Gram Positive Organisms 05/15/24 02:00 Urine, Clean Catch Chlamydia/Neisseria (PCR) - Final 05/15/24 02:30 Genital vaginal Group B Streptococcus (PCR) - Final D/C Instructions Discharge Diet: No restrictions May resume sexual activity in: 4-6 weeks Weight Bearing Status: Full weight bearing Call your doctor if your incision/area has: Continuous Slow Oozing, Sudden Increased Bleeding, Increased Pain/ Swelling, Increased Redness and Foul Smelling Discharge Call your doctor if you observe: Fever of 101 or Higher and Using more than 1 pad per hour Suture Line Care: Avoid Pulling/Pushing and Avoid Pinching/Bending Cleanse incision/area with: Soap & Water and Keep Dressing Clean & Dry Please Follow Up With: Debbie Singh DO When: Call [phone] to make an appointment for an incision check in 1-2 weeks. Meaningful Use Info Meaningful Use Meaningful Use Diagnoses (Choose all that apply): None applicable Ischemic Stroke Statin Dosing Therapy Reference: STATIN DOSE THERAPY REFERENCE: * Patients > 75 years receive moderate or high dose statin therapy. * Patients 75 years or YOUNGER should receive HIGH intensity statin dose unless contraindicated. You will be required to document reason for non-treatment if statin daily dose does not meet guidelines. HIGH DOSE STATIN THERAPY DAILY Atorvastatin > than or = to 40 mg Rosuvastatin > than or = to 20 mg Amlodipine + Atorvastatin > than or = to 2.5/40 mg Ezetimibe + Simvastatin 10/80 mg Simvastatin 80mg Discharge Plan Admission Admit Date/Time: 05/15/24 01:53 Primary Reason for Your Visit: repeat section and bladder repair Attending Provider: Debbie Singh Primary Care Provider: Daniel Ordonez Consulting Providers: Quynh Means Instructions Patient Instructions: Urinary Catheter Bag Empty Clean, ED Woodson Catheter, Care Additional Instructions / Restrictions: Follow up with Dr Means in her office in 1 week after discharge. Discharge Orders/Prescriptions Prescriptions: New cephalexin 500 mg capsule 500 mg PO BID Qty: 14 0RF oxycodone-acetaminophen [Percocet] 5-325 mg tablet 1 tab PO Q4H PRN (Reason: pain) 7 Days Qty: 20 0RF Rx Instructions: 1-2 tabs q 4 hrs as needed for pain ibuprofen 600 mg tablet 600 mg PO Q6H PRN (Reason: pain) Qty: 30 0RF Discontinued aspirin 81 mg capsule 81 mg PO DAILY No Action PNV #14-[id number] 27 mg iron-1 mg -300 mg-50 mg capsule PO progesterone 50 mg/mL oil 100 mg IM .2x per week Referrals / Follow Up: Debbie Singh DO [Med Staff - Active Staff] - Daniel Ordonez DO [Primary Care Provider] - Disposition Disposition (needs filled in before D/C Order can be placed): Home, Self Care
[2024-05-18 09:45] VITALS: O2SAT 98
--- NOTE | 2024-05-18 12:22 | NURSING ---
student vharting reviewed
[2024-05-18] MEDS: Cephalexin 500 MG Capsule PO (12:34)
[2024-05-18 13:32] VITALS: BP 120/73; PULSE 95; RESP 16; TEMP 36.6; O2SAT 97
--- NOTE | 2024-05-18 16:29 | NURSING ---
1600- Discharged to courtesy room after discharge instructions given and questions answered. Teaching completed regarding home catheter care and questions answered
== END 2024-05-18 16:00 | disposition home or self-care (01) | DRG 787 ==
LOC: WP 02:55
PROVIDERS: Admitting Provider Obstetrics & Gynecology; PCP Family Medicine; Referring Provider Obstetrics & Gynecology; Visit Provider Obstetrics & Gynecology
DX: O42.913 Preterm premature rupture of membranes, unspecified as to length of time between rupture and onset of labor, third trimester (principal); O71.5 Other obstetric injury to pelvic organs; N99.71 Accidental puncture and laceration of a genitourinary system organ or structure during a genitourinary system procedure; O26.893 Other specified pregnancy related conditions, third trimester; Y65.8 Other specified misadventures during surgical and medical care; Y92.234 Operating room of hospital as the place of occurrence of the external cause; O34.219 Maternal care for unspecified type scar from previous cesarean delivery; O32.1XX0 Maternal care for breech presentation, not applicable or unspecified; O69.81X0 Labor and delivery complicated by cord around neck, without compression, not applicable or unspecified; O34.03 Maternal care for unspecified congenital malformation of uterus, third trimester; O99.892 Other specified diseases and conditions complicating childbirth; Q51.28 Other and unspecified doubling of uterus; Z37.0 Single live birth; Z3A.34 34 weeks gestation of pregnancy; Z67.91 Unspecified blood type, Rh negative
CPT/HCPCS: 59025; 59050; 80307; 81002; 82962; 84112; 85025; 85027; 86703; 86762; 86780; 86803; 86850; 86870; 86900; 86901; 87086; 87088; 87340; 87491; 87591; 87653; 99221; J7120; A4216; C1758; G0378; J0702; J2405

== ENCOUNTER → 2024-05-24 | Outpatient (CLI) | payer OTHER, SELFPAY ==
--- NOTE | 2024-05-24 12:37 | RAD_ITS ---
CLINICAL HISTORY: Female, 28 years old. Bladder laceration. PROCEDURE: Cystogram. FLUOROSCOPY TIME (if supplied): (34 seconds) minutes/seconds. 67 mGy. 6 fluoroscopic images were obtained. 200 mL of contrast installed into the bladder in a retrograde fashion through the indwelling Jaime catheter.. The radiologist installed the contrast into the bladder. TECHNIQUE: (All elements of maximal sterile barrier technique followed, including US elements as applicable) Contrast was instilled via gravity. RAD/Cystography min 3 Views IMPRESSION: Normal cystogram. No evidence of bladder leakage. Electronically Signed: Michael Rendon MD at 13:17 EDT ,
== END | disposition home or self-care (01) ==
LOC: RAD 12:27
PROVIDERS: PCP Family Medicine; Referring Provider Urology; Visit Provider Urology
DX: N99.89 Other postprocedural complications and disorders of genitourinary system (principal)
CPT/HCPCS: 51600; 74430; Q9965